=== PATIENT | male | born 1965 | race Hispanic/Latino ===

== ENCOUNTER 2016-12-20 03:35 | Inpatient (IN) | payer OTHER ==
[2016-12-20 03:35] VITALS: BMI 22.2
[2016-12-20] MEDS ORDERED: Sodium Chloride 0.9% 1,000 ML IV STA (04:02)
--- NOTE | 2016-12-20 04:21 | ED PDOC ---
HPI: General Adult Time Seen by Provider: 12/20/16 03:45 Chief Complaint (Nursing): Abdominal Pain Chief Complaint (Provider): Abdominal Pain History Per: Patient Additional Complaint(s): Pt. states on Tuesday12/15/16 [address] in [facility] ED in [place] as he had abdominal pain and vomiting for 3 days. States he was admitted for an "intestinal obstruction." The following day he had an operation done and another operation the following day. Pt. states he is uncertain as to why he had to operations done. Reports to also having a NGT placed. On Tuesday he was discharged from the hospital and while he was at home he developed pain again along with non-bloody watery diarrhea. Also reports noticing redness to his abdomen. Denies fever, melena, hematochezia, BRBPR, chest pain, SOB, vomiting. Past Medical History Reviewed: Historical Data, Nursing Documentation, Vital Signs Vital Signs: Last Vital Signs Temp 98.6 F 12/20/16 03:46 Pulse 85 12/20/16 03:46 Resp 18 12/20/16 03:46 BP 143/80 12/20/16 03:46 Pulse Ox 98 12/20/16 05:28 - Medical History PMH: Anxiety, Back Problems (herniated discs) - Family History Family History: States: No Known Family Hx - Immunization History Hx Tetanus Toxoid Vaccination: No Hx Influenza Vaccination: No Hx Pneumococcal Vaccination: No - Home Medications Home Medications: Ambulatory Orders Medication Instructions Recorded No Known Home Med 11/19/16 - Allergies Allergies/Adverse Reactions: Allergies Allergy/AdvReac Type Severity Reaction Status Date / Time ketorolac tromethamine AdvReac NAUSEA Verified 12/20/16 05:16 [From Toradol] Review of Systems ROS Statement: Except As Marked, All Systems Reviewed And Found Negative Gastrointestinal: Positive for: Nausea, Vomiting, Abdominal Pain, Diarrhea Physical Exam - Reviewed Nursing Documentation Reviewed: Yes Vital Signs Reviewed: Yes - Physical Exam Appears: Positive for: Well, Non-toxic, No Acute Distress Head Exam: Positive for: ATRAUMATIC, NORMAL INSPECTION, NORMOCEPHALIC Skin: Positive for: Normal Color, Warm. Negative for: Rash Eye Exam: Positive for: EOMI, Normal appearance, PERRL ENT: Positive for: Normal ENT Inspection Neck: Positive for: Normal, Painless ROM Cardiovascular/Chest: Positive for: Regular Rate, Rhythm Respiratory: Positive for: CNT, Normal Breath Sounds Gastrointestinal/Abdominal: Positive for: Normal Exam, Bowel Sounds, Soft, Tenderness (minimal diffuse abdominal tenderness), Other (large ventral scar with asad in place and surrounding erythema with extension to RLQ without discharge or swelling). Negative for: Distended, Rebound Back: Positive for: Normal Inspection. Negative for: L CVA Tenderness, R CVA Tenderness Extremity: Positive for: Normal ROM Neurologic/Psych: Positive for: Alert, Oriented - Laboratory Results Result Diagrams: 12/20/16 05:37 - ECG O2 Sat by Pulse Oximetry: 98 - Progress ED Course And Treament: Labs ordered. Blood culture x 2 ordered. Dilaudid 1mg IV, zofran 4mg IV, zosyn IV, vancomycin IV given. IV NS bolus given. Rectal: light brown diarrhea; hemoccult negative; no hemorrhoids. Misty RN was present as database administration manager during rectal exam. Denies hx of anemia, previous transfusions, hx of GI bleeds. Disposition - Clinical Impression Clinical Impression: Abdominal pain - Patient ED Disposition Is Patient to be Admitted: Transfer of Care (Signed out to Dr. London pending CT results.) - Disposition Disposition Time: 06:00 Condition: STABLE
[2016-12-20] MEDS ORDERED: Piperacillin/Tazobact 3.375 GM in Sodium Chloride 0.9% 100 ML IVPB STA (04:45)
[2016-12-20] MEDS ORDERED: Piperacillin/Tazobact 3.375 gm Inj IVPB ONE (05:00)
[2016-12-20] MEDS ORDERED: Vancomycin 1 g Inj ONE (05:00)
[2016-12-20 05:42] LABS: BASO % 0.2 % (0.0-2.0); EOS # 0.1 K/uL (0.0-0.7); EOS % 0.8 % (0.0-4.0); HEMATOCRIT 25.1 % (35.0-51.0); LYMPH # 1.1 K/uL (1.0-4.3); LYMPH % 8.6 % (20.0-40.0); MEAN CELL VOLUME 87.6 fl (80.0-94.0); MEAN CORPUSCULAR HEMOGLOBIN 29.2 pg (27.0-31.0); MEAN CORPUSCULAR HGB CONC 33.3 g/dL (33.0-37.0); MEAN PLATELET VOLUME 7.8 fl (7.2-11.7); MONO # 0.8 K/uL (0.0-0.8); MONO % 6.2 % (0.0-10.0); NEUT # 10.7 K/uL (1.8-7.0); NEUT % 84.2 % (50.0-75.0); PLATELET COUNT 543 K/uL (130-400); RED CELL DISTRIBUTION WIDTH 14.5 % (11.5-14.5); WHITE BLOOD COUNT 12.7 K/uL (4.8-10.8)
[2016-12-20 06:04] LABS: CHLORIDE 100 mmol/L (98-107); POTASSIUM 2.8 MMOL/L (3.6-5.0); SODIUM 138 mmol/l (132-148)
--- NOTE | 2016-12-20 06:05 | ED PDOC ---
- Laboratory Results Result Diagrams: 12/20/16 05:37 12/20/16 05:37 - ECG O2 Sat by Pulse Oximetry: 98 (RA) Pulse Ox Interpretation: Normal Medical Decision Making Medical Decision Making: Receiving Sign Out: Patient signed out to me by JOSSUE Verdugo pending CT results and final disposition. Scribe Attestation: Documented by Alisa Hercules acting as a scribe for Zaynab London MD Provider Scribe Attestation: All medical record entries made by the Scribe were at my direction and personally dictated by me. I have reviewed the chart and agree that the record accurately reflects my personal performance of the history, physical exam, medical decision making, and the department course for this patient. I have also personally directed, reviewed, and agree with the discharge instructions and disposition. Disposition - Clinical Impression Clinical Impression: Abdominal pain, Enteritis, Anemia - POA Present On Arrival: None - Disposition Disposition: Transfer of Care Disposition Time: 07:00 Condition: FAIR Patient Signed Over To: Braxton Helm Handoff Comments: Pending CT and final ER dispo
[2016-12-20 06:06] LABS: GFR AFRICAN-AMERICAN > 60
[2016-12-20 06:07] LABS: ALB/GLOB RATIO 0.7 (1.0-2.1); ALKALINE PHOSPHATASE 127 U/L (38-126); ALT/SGPT 25 U/L (21-72); AST/SGOT 46 U/L (17-59); BILIRUBIN,TOTAL 0.7 mg/dl (0.2-1.3); BLOOD UREA NITROGEN 6 mg/dl (9-20); CARBON DIOXIDE 26 mmol/L (22-30); GLUCOSE,RANDOM 98 mg/dL (75-110); TOTAL PROTEIN 7.3 G/DL (6.3-8.2)
[2016-12-20 06:08] LABS: CALCIUM 8.4 mg/dL (8.4-10.2)
[2016-12-20] MEDS ORDERED: Iohexol 300 100 ML IJ ONE (06:10)
[2016-12-20] MEDS ORDERED: Sodium Chloride 0.9% 50 ML IV ONE (06:10)
[2016-12-20 06:11] LABS: RBC URINE 2 /hpf (0-3); URINE BILIRUBIN NEGATIVE (NEGATIVE); URINE BLOOD SMALL (NEGATIVE); URINE COLOR STRAW (YELLOW); URINE GLUCOSE (UA) NEG (Normal); URINE KETONE NEGATIVE (NEGATIVE); URINE LEUKOCYTE ESTERASE NEG Leu/uL (Negative); URINE PROTEIN 30 mg/dL (NEGATIVE); URINE UROBILINOGEN 0.2-1.0 mg/dL (0.2-1.0); WBC URINE < 1 /hpf (0-5)
[2016-12-20] MEDS ORDERED: Potassium CL 10mEq/100ml 100 ML IVPB ONE (06:16)
[2016-12-20] MEDS ORDERED: K-Lyte 25meq EF Tab PO ONE (06:17)
[2016-12-20] MEDS ORDERED: K-Lyte 25meq EF Tab PO STA (06:18)
[2016-12-20 06:24] LABS: EOSINOPHIL 4 % (0-7); NEUTROPHIL 82 % (42-75); REACTIVE LYMPHOCYTES 2 % (0-0); TOTAL CELLS COUNTED 100
[2016-12-20 06:45] VITALS: PULSE 78
[2016-12-20 06:47] LABS: PARTIAL THROMBOPLASTIN TIME 32.6 SECONDS (23.3-32.5)
--- NOTE | 2016-12-20 07:10 | CT ---
EXAM: CT Abdomen and Pelvis With Intravenous Contrast. CLINICAL HISTORY: 50 years old, male; Pain; Abdominal pain; Generalized; Prior surgery; Surgery date: 3-7 days post-operative; Surgery type: Per patient for obstruction; Additional info: Recent obstruction; Cellulitis on incision TECHNIQUE: Axial computed tomography images of the abdomen and pelvis with intravenous contrast. This CT exam was performed using one or more of the following dose reduction techniques: automated exposure control, adjustment of the mA and/or kV according to patient size, and/or use of iterative reconstruction technique. Coronal and sagittal reformatted images were created and reviewed. CONTRAST: 95 mL of [id number] administered intravenously. EXAM DATE/TIME: 12/20/2016 4:02 AM COMPARISON: No relevant prior studies available. FINDINGS: There are bilateral lower lung infiltrates and atelectasis. Trace bilateral pleural effusions. [place] are present along the anterior abdomen at midline and just to the left of midline. There is a small amount of stranding/fluid underlying the skin asad within normal limits. No drainable walled off fluid collection. Surgical sutures are noted in bowel in the right upper quadrant. The stomach is distended with fluid and air. There is diffuse dilation of the small and large bowel with fluid. Small bowel loops in the pelvis are less dilated than those proximally however are still distended. Entire colon is dilated with fluid. There is prominent fold enhancement in numerous small bowel loops. Findings supportive of postoperative ileus and/or enteritis. Air in urinary bladder that is pectus secondary to Raphael placement during surgery. The liver is normal. The spleen is normal. The pancreas is normal. No gallstones. Trace bilateral perinephric stranding. IMPRESSION: Status post bowel surgery right upper quadrant. Diffuse dilation of small and large bowel with fluid. Findings supportive of postoperative ileus and/or enteritis.
--- NOTE | 2016-12-20 07:13 | ED PDOC ---
- Laboratory Results Result Diagrams: 12/20/16 05:37 12/20/16 05:37 - ECG O2 Sat by Pulse Oximetry: 98 Medical Decision Making Medical Decision Makin signed over to me by Moe London MD [id number] labs and imaging reviewed. case discussed with family practice resident. Disposition - Clinical Impression Clinical Impression: Abdominal pain, Enteritis, Anemia - POA Present On Arrival: None - Disposition Disposition: Admitted as In-Patient Disposition Time: 07:54 Condition: FAIR Additional Comments - Additional Comments Additional Comments: Scribe Attestation: Documented by Poli Tapia acting as a scribe for Braxton Helm MD Provider Scribe Attestation: All medical record entries made by the Scribe were at my direction and personally dictated by me. I have reviewed the chart and agree that the record accurately reflects my personal performance of the history, physical exam, medical decision making, and the department course for this patient. I have also personally directed, reviewed, and agree with the discharge instructions and disposition.
[2016-12-20] MEDS ORDERED: Potassium Chloride 10 mEq ER Tab PO ONE ×2 (07:54→08:40)
[2016-12-20] MEDS ORDERED: HYDROmorphone 0.5 mg/0.5 ml ISec IVP PRN (08:17)
[2016-12-20] MEDS ORDERED: Enoxaparin 40 mg Syringe SC SCH (09:00)
[2016-12-20 09:22] VITALS: BP 144/74; TEMP 97.8
--- NOTE | 2016-12-20 09:53 | CP.PCM.HP ---
History of Present Illness - History of Present Illness History of Present Illness: 50 YO M s/p abdominal surgery (unknown) at [facility] ED in [place] on 12/15/16 came into the ED today because he has been having diarrhea since yesterday. He can not quantify how many times a day. Stool is profusly watery, non bloody, non foul smelling. - On tuesday he was discharged from the hospital and states he is having very severe abdominal pain and diarrhea.. Denies fever, chills, rigor, night sweats Past Patient History - Infectious Disease Hx of Infectious Diseases: None - Past Medical History & Family History Past Medical History?: Yes - Past Social History Smoking Status: Heavy Smoker > 10 Cigarettes Daily - CARDIAC Hx Cardiac Disorders: No - PULMONARY Hx Respiratory Disorders: No - NEUROLOGICAL Hx Neurological Disorder: No - HEENT Hx HEENT Problems: No - RENAL Hx Chronic Kidney Disease: No - ENDOCRINE/METABOLIC Hx Endocrine Disorders: No - HEMATOLOGICAL/ONCOLOGICAL Hx Blood Disorders: No - INTEGUMENTARY Hx Dermatological Problems: No - MUSCULOSKELETAL/RHEUMATOLOGICAL Hx Musculoskeletal Disorders: Yes (Back problems) - GENITOURINARY/GYNECOLOGICAL Hx Genitourinary Disorders: No - PSYCHIATRIC Hx Psychophysiologic Disorder: Yes (Anxiety, Substance abuse) - SURGICAL HISTORY Hx Surgeries: Yes Hx Musculoskeletal Surgery: Yes (right knee meniscus tear) - ANESTHESIA Hx Anesthesia: No Meds Allergies/Adverse Reactions: Allergies Allergy/AdvReac Type Severity Reaction Status Date / Time ketorolac tromethamine AdvReac NAUSEA Verified 12/20/16 05:16 [From Toradol] Results - Vital Signs Recent Vital Signs: Last Vital Signs Temp 97.8 F 12/20/16 09:21 Pulse 78 12/20/16 09:21 Resp 18 12/20/16 09:21 BP 144/74 12/20/16 09:21 Pulse Ox 99 12/20/16 09:21 - Labs Result Diagrams: 12/20/16 05:37 12/20/16 05:37
[2016-12-20 09:59] VITALS: RESP 20
--- NOTE | 2016-12-20 12:00 | RAD ---
PROCEDURE: Radiographs of the chest and abdomen (obstructive series) HISTORY: recent intestinal obstruction COMPARISON: No prior. TECHNIQUE: AP radiograph of the chest, with upright and supine radiographs of the abdomen. FINDINGS: CHEST: Lungs: Vaguely triangular opacity at right lung base, nonspecific. Pneumonia versus atelectasis. Cardiovascular: Normal size heart. No pulmonary vascular congestion. Pleura: No pleural fluid. No pneumothorax. Other findings: None. ABDOMEN AND PELVIS: Bowel: Multiple dilated small bowel loops with air-fluid levels on the upright view. Suspicious for mechanical bowel obstruction. There is evidence of recent surgery with asad in the lower midline abdomen. There is no gas identified within colon. Free air: None. Bones: Unremarkable. Other findings: None. IMPRESSION: Findings suspicious for mechanical small bowel obstruction. Evidence of recent surgery. Opacity at right lung base may reflect infiltrate or atelectasis.
[2016-12-22 14:13] VITALS: O2SAT 98
== END 2016-12-20 10:05 | disposition left against medical advice (07) | DRG 813 ==
LOC: H.ER 03:35 → H.ERHOLD 07:55 → H.MEDSURG1 09:16
PROVIDERS: ADMIT Family Medicine Geriatric Medicine; ATTEND Family Medicine Geriatric Medicine
DX: R10.9 Unspecified abdominal pain (principal); E87.6 Hypokalemia; K56.7 Ileus, unspecified; F17.210 Nicotine dependence, cigarettes, uncomplicated; D50.0 Iron deficiency anemia secondary to blood loss (chronic); F41.9 Anxiety disorder, unspecified; K52.9 Noninfective gastroenteritis and colitis, unspecified; R11.0 Nausea

== ENCOUNTER 2016-12-23 21:29 | Emergency (ER) | payer OTHER ==
[2016-12-23 21:30] VITALS: BMI 21.5
[2016-12-23 21:33] VITALS: BP 126/67; PULSE 87; RESP 20; TEMP 97.9; O2SAT 100
[2016-12-23] MEDS ORDERED: levoFLOXacin 500 MG TAB PO STA (22:52)
--- NOTE | 2016-12-23 22:58 | ED PDOC ---
HPI: Skin/Bite Injury Time Seen by Provider: 12/23/16 21:40 Chief Complaint (Nursing): Abdominal Pain Chief Complaint (Provider): wound discharge History Per: Patient History/Exam Limitations: no limitations Onset/Duration Of Symptoms: Days (1) Current Symptoms Are (Timing): Still Present Additional Complaint(s): Pt with surgical wound to abdomen s/p surgery 2 weeks ago in another hospital for bowel obstruction. Seen in this ER over last several days for evaluation of abdominal pain. Discharged on bactrim for redness surrounding wound. This is the same but he presents today with bloody discharge from wound for 1 day ( started yesterday evening). He reports that he has not cleaned it or applied anything to the site since he was discharged 2 days ago and requesting that the wound be cleaned and material applied to cover the wound. He denies fever or chills. Past Medical History Reviewed: Historical Data, Nursing Documentation, Vital Signs Vital Signs: Last Vital Signs Temp 97.9 F 12/23/16 21:31 Pulse 87 12/23/16 21:31 Resp 20 12/23/16 21:31 BP 126/67 12/23/16 21:31 Pulse Ox 100 12/23/16 23:17 - Medical History PMH: Anxiety, Back Problems (herniated discs) Denies: Chronic Kidney Disease - Surgical History Other surgeries: Abdominal surgery for obstruction - Family History Family History: States: Unknown Family Hx - Social History Current smoker - smoking cessation education provided: Yes - Immunization History Hx Tetanus Toxoid Vaccination: No Hx Influenza Vaccination: No Hx Pneumococcal Vaccination: No - Home Medications Home Medications: Ambulatory Orders Medication Instructions Recorded Sulfamethoxazole/Trimethoprim 1 each PO BID 7 Days 12/21/16 [Bactrim 400-80 mg Tablet] traMADol [Ultram] 25 mg PO Q6 PRN #20 tab 12/21/16 Mupirocin 2% Ointment [Bactroban 1 appl TP BID #1 tube 12/23/16 Ointment] levoFLOXacin [Levaquin] 500 mg PO DAILY #10 tab 12/23/16 - Allergies Allergies/Adverse Reactions: Allergies Allergy/AdvReac Type Severity Reaction Status Date / Time No Known Allergies Allergy Verified 12/21/16 15:27 Review of Systems Constitutional: Negative for: Fever, Chills Gastrointestinal: Positive for: Abdominal Pain. Negative for: Nausea, Vomiting , Diarrhea Skin: Positive for: Lesions Physical Exam - Reviewed Nursing Documentation Reviewed: Yes Vital Signs Reviewed: Yes - Physical Exam Appears: Positive for: Non-toxic, No Acute Distress Head Exam: Positive for: ATRAUMATIC, NORMOCEPHALIC Skin: Positive for: Warm, Dry Gastrointestinal/Abdominal: Positive for: Bowel Sounds, Soft, Tenderness (mild diffuse), Other (Ventral surgical scar with moderate dark brown granuloma and serosanguinous discharge, no odor, no purulence. Erythema mild midline and mild extension to RLQ). Negative for: Mass, Distended, Guarding - ECG O2 Sat by Pulse Oximetry: 100 Disposition - Clinical Impression Clinical Impression: Surgical wound granuloma - Disposition Referrals: [facility] [Outside] (FOLLOW UP WITH CLINIC IN 2-3 DAYS FOR REEVALUATION) Disposition: Routine/Home Disposition Time: 22:00 Condition: STABLE Additional Instructions: CLEAN WOUND TWICE A DAY WITH SOAP AND WATER. Prescriptions: Mupirocin 2% Ointment [Bactroban Ointment] 1 appl TP BID #1 tube levoFLOXacin [Levaquin] 500 mg PO DAILY #10 tab Instructions: Surgical Site Infections (ED)
== END 2016-12-23 23:01 | disposition home or self-care (01) ==
LOC: H.ER 21:29
DX: T81.89XA Other complications of procedures, not elsewhere classified, initial encounter (principal)

== ENCOUNTER 2016-12-30 19:45 | Emergency (ER) | payer OTHER ==
[2016-12-30 19:45] VITALS: BMI 21.5
[2016-12-30 20:05] VITALS: BP 126/80; PULSE 75; RESP 16; TEMP 98.2; O2SAT 99
--- NOTE | 2016-12-30 20:20 | ED PDOC ---
HPI: Wound Care - HPI Time Seen by Provider: 12/30/16 20:12 Chief Complaint (Nursing): Wound Check Chief Complaint (Provider): Wound check History Per: Patient Additional Complaint(s): pt had abd surgery several weeks ago, pt reports one of his asad fell out. Denies pain. Past Medical History Vital Signs: Last Vital Signs Temp 98.2 F 12/30/16 20:03 Pulse 75 12/30/16 20:03 Resp 16 12/30/16 20:03 BP 126/80 12/30/16 20:03 Pulse Ox 99 12/30/16 20:03 - Medical History PMH: Anxiety, Back Problems (herniated discs), Obstructive Bowel Denies: Chronic Kidney Disease - Family History Family History: States: Unknown Family Hx - Immunization History Hx Tetanus Toxoid Vaccination: No Hx Influenza Vaccination: No Hx Pneumococcal Vaccination: No - Home Medications Home Medications: Ambulatory Orders Medication Instructions Recorded Sulfamethoxazole/Trimethoprim 1 each PO BID 7 Days 12/21/16 [Bactrim 400-80 mg Tablet] traMADol [Ultram] 25 mg PO Q6 PRN #20 tab 12/21/16 Mupirocin 2% Ointment [Bactroban 1 appl TP BID #1 tube 12/23/16 Ointment] levoFLOXacin [Levaquin] 500 mg PO DAILY #10 tab 12/23/16 - Allergies Allergies/Adverse Reactions: Allergies Allergy/AdvReac Type Severity Reaction Status Date / Time No Known Allergies Allergy Verified 12/21/16 15:27 - ECG O2 Sat by Pulse Oximetry: 99
== END 2016-12-30 22:03 | disposition home or self-care (01) ==
LOC: H.ER 19:45
DX: Z51.89 Encounter for other specified aftercare (principal)

== ENCOUNTER 2017-01-04 23:22 | Inpatient (IN) | payer OTHER ==
[2017-01-04 23:22] VITALS: BMI 21.5
[2017-01-05] MEDS ORDERED: Sodium Chloride 0.9% 1,000 ML IV STA (00:11)
--- NOTE | 2017-01-05 00:16 | ED PDOC ---
HPI: Abdomen <Adri Galan Y - Last Filed: 01/05/17 06:31> Chief Complaint (Provider): abdominal pain History Per: Patient History/Exam Limitations: no limitations Onset/Duration Of Symptoms: Days (1) Current Symptoms Are (Timing): Still Present Location Of Pain/Discomfort: Epigastric, LUQ Quality Of Discomfort: Sharp, "Pain" Associated Symptoms: denies: Fever, Chills, Nausea, Vomiting, Diarrhea, Constipation, Urinary Symptoms Additional History Per: Patient <Maryan Powers - Last Filed: 01/06/17 03:22> Time Seen by Provider: 01/04/17 23:45 Chief Complaint (Nursing): Abdominal Pain Additional Complaint(s): 51 y/o male history of recent abdominal surgery for intestinal obstructions in [place] presents with severe upper abdominal pain x 1 day. Denies fever, nausea/vomiting, chest pain, shortness of breath, changes in bowel movements, urinary symptoms. No medications taken for pain relief thus far. Last BM yesterday. (Maryan Powers) Past Medical History <Adri Galan Y - Last Filed: 01/05/17 06:31> Reviewed: Historical Data, Nursing Documentation, Vital Signs - Medical History PMH: Anxiety, Back Problems (herniated discs), Obstructive Bowel Denies: Chronic Kidney Disease - Family History Family History: States: Unknown Family Hx - Immunization History Hx Tetanus Toxoid Vaccination: No Hx Influenza Vaccination: No Hx Pneumococcal Vaccination: No <Maryan Powers - Last Filed: 01/06/17 03:22> Vital Signs: Last Vital Signs Temp 98.4 F 01/05/17 08:55 Pulse 100 H 01/05/17 08:55 Resp 20 01/05/17 09:45 BP 117/68 01/05/17 08:55 Pulse Ox 97 01/05/17 08:55 - Home Medications Home Medications: Ambulatory Orders Medication Instructions Recorded No Known Home Med 01/05/17 - Allergies Allergies/Adverse Reactions: Allergies Allergy/AdvReac Type Severity Reaction Status Date / Time No Known Allergies Allergy Verified 01/04/17 23:32 Review of Systems ROS Statement: Except As Marked, All Systems Reviewed And Found Negative Gastrointestinal: Positive for: Abdominal Pain <Maryan Powers - Last Filed: 01/06/17 03:22> Physical Exam - Reviewed Nursing Documentation Reviewed: Yes Vital Signs Reviewed: Yes - Physical Exam Appears: Positive for: Well, Non-toxic, In Acute Distress Head Exam: Positive for: ATRAUMATIC, NORMAL INSPECTION, NORMOCEPHALIC Skin: Positive for: Normal Color Eye Exam: Positive for: Normal appearance ENT: Positive for: Normal ENT Inspection Cardiovascular/Chest: Positive for: Regular Rate, Rhythm Respiratory: Positive for: Normal Breath Sounds Gastrointestinal/Abdominal: Positive for: Bowel Sounds (decreased LUQ, LLQ), Tenderness (LUQ, epigastric), Distended, Other (vertical incision site with asad in place. Erythema surrounding asad, + prurulent discharge noted near umbilicus) Extremity: Positive for: Normal ROM Neurologic/Psych: Positive for: Alert, Oriented <Maryan Powers - Last Filed: 01/06/17 03:22> - Laboratory Results Result Diagrams: 01/05/17 01:37 01/05/17 01:37 <Adri Galan - Last Filed: 01/05/17 06:31> - Laboratory Results Result Diagrams: 01/05/17 01:37 01/05/17 01:37 - ECG ECG: Positive for: Viewed By Ms (reviewed by ED attending) ECG Rhythm: Positive for: Sinus Rhythm O2 Sat by Pulse Oximetry: 100 Pulse Ox Interpretation: Normal - Radiology X-Ray: Viewed By Me X-Ray Interpretation: No Acute Disease <Maryan Powers - Last Filed: 01/06/17 03:22> - Progress ED Course And Treament: labs, urine, CT abd/pelvis, IV dilaudid, IV fluids Patient vomited in ED; IV zofran ordered EXAM: CT Abdomen and Pelvis With Intravenous Contrast. CLINICAL HISTORY: 51 years old, male; Pain; Abdominal pain; Generalized; Prior surgery; Surgery date: <1 month; Surgery type: Surgery for intestinal blockage per patient; Additional info: Abd pain, vomiting. S/P abd surgery x 3 weeks TECHNIQUE: Axial computed tomography images of the abdomen and pelvis with intravenous contrast. This CT exam was performed using one or more of the following dose reduction techniques : automated exposure control, adjustment of the mA and/or kV according to patient size, and/ or use of iterative reconstruction technique. Coronal and sagittal reformatted images were created and reviewed. CONTRAST: 95 mL of [id number] administered intravenously. COMPARISON: CT - ABD PELVIS IV CONTRAST ONLY 12/20/2016 6:19:11 AM FINDINGS: Lower thorax: There is minimal bibasilar atelectasis. ABDOMEN: Liver: There are no focal liver lesions present. Gallbladder and bile ducts: The gallbladder is normal. No calcified stones. No ductal dilation. Pancreas: Pancreas is slightly fatty replaced. No ductal dilation. Spleen: The spleen is normal. Adrenals: The adrenal glands are normal. Kidneys and ureters: Right kidney demonstrates mild hydronephrosis and proximal hydroureter but with no obstructing calculus found. Of note, the appearance was similar on 2016. The left kidney is normal. Stomach and bowel: There is small bowel obstruction with proximal fluid filled loops measuring up to 1.6 CM. Distal transition zone. Some gas and stool remain in the colon suggesting that the small bowel obstruction is partial in nature. The findings are similar to 12/20/2016. Again seen is intact bowel anastomosis in the right mid abdomen. Appendix: No findings to suggest acute appendicitis PELVIS: Bladder: Unremarkable. No mass. Reproductive: Unremarkable as visualized. ABDOMEN and PELVIS: Intraperitoneal space: There is small pelvic ascites, and abnormal although nonspecific. There is no free intraperitoneal air. Bones/joints: There are mild degenerative changes present. There is mild diffuse osteopenia. No acute fracture. No dislocation. Soft tissues: Skin asad are again noted in the anterior abdomen midline running craniocaudally Vasculature: The aorta demonstrates mild atherosclerotic calcification. No abdominal aortic aneurysm. Lymph nodes: There is no evidence of lymphadenopathy. IMPRESSION: 1. Right kidney demonstrates mild hydronephrosis and proximal hydroureter but with no obstructing calculus found. Of note, the appearance was similar on 12/20/2016. 2. There is small bowel obstruction with proximal fluid filled loops measuring up to 1.6 CM. Distal transition zone. Some gas and stool remain in the colon suggesting that the small bowel obstruction is partial in nature. The findings are similar to 12/20/2016. 3. Again seen is intact bowel anastomosis in the right mid abdomen. 4. There is small pelvic ascites, and abnormal although nonspecific. 5. Additional incidental and/or chronic findings as described. Case discussed with FP resident on-call for admission. presidential support specialist on-call aware of consult. Dr. Bonner paged regarding consult (Maryan Powers) Medical Decision Making <Adri Galan Y - Last Filed: 01/05/17 06:31> <Maryan Powers - Last Filed: 01/06/17 03:22> Medical Decision Makin: Dr. Bonner aware. (Adri Galan Y) Disposition <Adri Galan Y - Last Filed: 01/05/17 06:31> - Patient ED Disposition Is Patient to be Admitted: Yes - Disposition Disposition Time: 05:30 <Maryan Powers - Last Filed: 01/06/17 03:22> - Clinical Impression Clinical Impression: Small bowel obstruction - Disposition Condition: FAIR
[2017-01-05] MEDS ORDERED: HYDROmorphone 0.5 mg/0.5 ml ISec ONE (00:28)
[2017-01-05] MEDS ORDERED: Iohexol 240 (50 ml) PO ONE (00:28)
[2017-01-05 01:42] LABS: BASO % 0.2 % (0.0-2.0); EOS % 0.3 % (0.0-4.0); HEMATOCRIT 31.4 % (35.0-51.0); LYMPH # 0.7 K/uL (1.0-4.3); LYMPH % 5.4 % (20.0-40.0); MEAN CELL VOLUME 91.9 fl (80.0-94.0); MEAN CORPUSCULAR HEMOGLOBIN 29.3 pg (27.0-31.0); MEAN CORPUSCULAR HGB CONC 31.9 g/dL (33.0-37.0); MEAN PLATELET VOLUME 8.2 fl (7.2-11.7); MONO % 0.3 % (0.0-10.0); NEUT # 11.9 K/uL (1.8-7.0); NEUT % 93.8 % (50.0-75.0); PLATELET COUNT 319 K/uL (130-400); RED CELL DISTRIBUTION WIDTH 17.5 % (11.5-14.5); WHITE BLOOD COUNT 12.6 K/uL (4.8-10.8)
[2017-01-05 01:57] LABS: ALB/GLOB RATIO 0.9 (1.0-2.1); ALKALINE PHOSPHATASE 92 U/L (38-126); ALT/SGPT 24 U/L (21-72); AST/SGOT 26 U/L (17-59); BILIRUBIN,TOTAL 0.5 mg/dl (0.2-1.3); BLOOD UREA NITROGEN 10 mg/dl (9-20); CALCIUM 8.7 mg/dL (8.4-10.2); CARBON DIOXIDE 28 mmol/L (22-30); CHLORIDE 101 mmol/L (98-107); GFR AFRICAN-AMERICAN > 60; GLUCOSE,RANDOM 95 mg/dL (75-110); LIPASE 17 U/L (23-300); POTASSIUM 3.7 MMOL/L (3.6-5.0); SODIUM 141 mmol/l (132-148)
[2017-01-05] MEDS ORDERED: Iohexol 300 50 ML ONE (04:21)
[2017-01-05] MEDS ORDERED: Sodium Chloride 0.9% 50 ML IV ONE (04:21)
[2017-01-05 04:33] LABS: NEUTROPHIL 92 % (42-75); TOTAL CELLS COUNTED 100
--- NOTE | 2017-01-05 05:07 | CT ---
EXAM: CT Abdomen and Pelvis With Intravenous Contrast. CLINICAL HISTORY: 51 years old, male; Pain; Abdominal pain; Generalized; Prior surgery; Surgery date: <1 month; Surgery type: Surgery for intestinal blockage per patient; Additional info: Abd pain, vomiting. S/P abd surgery x 3 weeks TECHNIQUE: Axial computed tomography images of the abdomen and pelvis with intravenous contrast. This CT exam was performed using one or more of the following dose reduction techniques: automated exposure control, adjustment of the mA and/or kV according to patient size, and/or use of iterative reconstruction technique. Coronal and sagittal reformatted images were created and reviewed. CONTRAST: 95 mL of [id number] administered intravenously. COMPARISON: CT - ABD PELVIS IV CONTRAST ONLY 12/20/2016 6:19:11 AM FINDINGS: Lower thorax: There is minimal bibasilar atelectasis. ABDOMEN: Liver: There are no focal liver lesions present. Gallbladder and bile ducts: The gallbladder is normal. No calcified stones. No ductal dilation. Pancreas: Pancreas is slightly fatty replaced. No ductal dilation. Spleen: The spleen is normal. Adrenals: The adrenal glands are normal. Kidneys and ureters: Right kidney demonstrates mild hydronephrosis and proximal hydroureter but with no obstructing calculus found. Of note, the appearance was similar on 12/20/2016. The left kidney is normal. Stomach and bowel: There is small bowel obstruction with proximal fluid filled loops measuring up to 1.6 CM. Distal transition zone. Some gas and stool remain in the colon suggesting that the small bowel obstruction is partial in nature. The findings are similar to 12/20/2016. Again seen is intact bowel anastomosis in the right mid abdomen. Appendix: No findings to suggest acute appendicitis. PELVIS: Bladder: Unremarkable. No mass. Reproductive: Unremarkable as visualized. ABDOMEN and PELVIS: Intraperitoneal space: There is small pelvic ascites, and abnormal although nonspecific. There is no free intraperitoneal air. Bones/joints: There are mild degenerative changes present. There is mild diffuse osteopenia. No acute fracture. No dislocation. Soft tissues: Skin asad are again noted in the anterior abdomen midline running craniocaudally Vasculature: The aorta demonstrates mild atherosclerotic calcification. No abdominal aortic aneurysm. Lymph nodes: There is no evidence of lymphadenopathy. IMPRESSION: 1. Right kidney demonstrates mild hydronephrosis and proximal hydroureter but with no obstructing calculus found. Of note, the appearance was similar on 12/20/2016. 2. There is small bowel obstruction with proximal fluid filled loops measuring up to 1.6 CM. Distal transition zone. Some gas and stool remain in the colon suggesting that the small bowel obstruction is partial in nature. The findings are similar to 12/20/2016. 3. Again seen is intact bowel anastomosis in the right mid abdomen. 4. There is small pelvic ascites, and abnormal although nonspecific. 5. Additional incidental and/or chronic findings as described.
--- NOTE | 2017-01-05 05:31 | CP.PCM.HP ---
History of Present Illness - History of Present Illness History of Present Illness: 50 yo M s/p abdominal surgery at [facility] in [place] on 12/15/16 for "intestinal obstruction" as per patient presented to ED with upper abdominal pain associated x 1 day without nausea or vomiting though in ED had 2 episodes of emesis and nausea. Patient had been admitted to med/surg approx 2 wks ago with similar symptoms, treated for post-op ileus and cellulitis. Patient has not returned to surgeon for further evaluation of previous operation. Last BM yesterday, unremarkable. Denies fever, chills, night sweats, chest pain, sob, diarrhea, constipation, changes in diet, or changes in urinary habits. PMH: None PSH: Surgery for intestinal obstruction Allergy: NKDA Meds: None F/H: None S/H: Lives with mother, Denies alcohol, Smokes 1ppd, denies drug use ER Course: Vitals stable, afebrile PE notable for Bowel Sounds (decreased LUQ, LLQ), Tenderness (LUQ, epigastric), Distended, Other (vertical incision site with asad in place. Erythema surrounding asad, + prurulent discharge noted near umbilicus) Labs notable for mild leukocytosis and mild anemia. CT Abdomen obtained, partial SBO Dilaudid 1mg x 2, Zofran 4mg x 2 (due to large emesis, nb/nb), 500ml NS bolus Present on Admission - Present on Admission Any Indicators Present on Admission: No Review of Systems - Review of Systems All systems: reviewed and no additional remarkable complaints except (mentioned in HPI) Past Patient History - Infectious Disease Hx of Infectious Diseases: None - Past Medical History & Family History Past Medical History?: Yes - Past Social History Smoking Status: Heavy Smoker > 10 Cigarettes Daily - CARDIAC Hx Cardiac Disorders: No - PULMONARY Hx Respiratory Disorders: No - NEUROLOGICAL Hx Neurological Disorder: No - HEENT Hx HEENT Problems: No - RENAL Hx Chronic Kidney Disease: No - ENDOCRINE/METABOLIC Hx Endocrine Disorders: No - HEMATOLOGICAL/ONCOLOGICAL Hx Blood Disorders: No - INTEGUMENTARY Hx Dermatological Problems: No - MUSCULOSKELETAL/RHEUMATOLOGICAL Hx Musculoskeletal Disorders: Yes Hx Falls: No - GASTROINTESTINAL Hx Gastrointestinal Disorders: No Hx Bowel Surgery: Yes - GENITOURINARY/GYNECOLOGICAL Hx Genitourinary Disorders: No - PSYCHIATRIC Hx Anxiety: Yes - SURGICAL HISTORY Hx Surgeries: Yes Hx Musculoskeletal Surgery: Yes (right knee meniscus tear) Other/Comment: 2 Abdominal surgery from [facility]- patient unable to identify at present time - ANESTHESIA Hx Anesthesia: Yes Hx Anesthesia Reactions: No Meds Allergies/Adverse Reactions: Allergies Allergy/AdvReac Type Severity Reaction Status Date / Time No Known Allergies Allergy Verified 01/04/17 23:32 Physical Exam - Constitutional Appears: Well, Non-toxic, No Acute Distress Additional comments: sleeping comfortably when walked into room - Head Exam Head Exam: ATRAUMATIC, NORMAL INSPECTION, NORMOCEPHALIC - Eye Exam Eye Exam: EOMI, Normal appearance - Neck Exam Neck exam: Positive for: Normal Inspection - Respiratory Exam Respiratory Exam: Clear to Auscultation Bilateral, NORMAL BREATHING PATTERN. absent: Decreased Breath Sounds, Rhonchi, Wheezes - Cardiovascular Exam Cardiovascular Exam: REGULAR RHYTHM, +S1, +S2 - GI/Abdominal Exam GI & Abdominal Exam: Hypoactive Bowel Sounds, Soft, Tenderness (epigastric). absent: Distended, Firm, Rebound Additional comments: vertical incision with asad intact, mild surrounding erythema without appreciated discharge. - Extremities Exam Extremities exam: Positive for: normal inspection. Negative for: calf tenderness, pedal edema - Neurological Exam Neurological exam: Alert, Oriented x3 - Psychiatric Exam Psychiatric exam: Normal Affect, Normal Mood - Skin Skin Exam: Dry, Intact, Normal Color, Warm Results - Vital Signs Recent Vital Signs: Last Vital Signs Temp 98.7 F 01/04/17 23:32 Pulse 92 H 01/04/17 23:32 Resp 16 01/04/17 23:32 BP 123/73 01/04/17 23:32 Pulse Ox 100 01/05/17 05:22 - Labs Result Diagrams: 01/05/17 01:37 01/05/17 01:37 Labs: Laboratory Results - last 24 hr 01/05/17 01:37 WBC 12.6 H RBC 3.42 L Hgb 10.0 L D Hct 31.4 L MCV 91.9 D MCH 29.3 MCHC 31.9 L RDW 17.5 H Plt Count 319 D MPV 8.2 Neut % (Auto) 93.8 H Lymph % (Auto) 5.[address] [facility] % (Auto) 0.3 Eos % (Auto) 0.3 Baso % (Auto) 0.2 Neut # 11.9 H Lymph # 0.[address] [facility] # 0.0 Eos # 0.0 Baso # 0.0 Neutrophils % (Manual) 92 H Band Neutrophils % 2 Lymphocytes % (Manual) 5 L Monocytes % (Manual) 1 Platelet Estimate Normal Hypochromasia (manual) Slight Macrocytosis (manual) Slight PT 10.5 INR 1.01 APTT 27.0 Sodium 141 Potassium 3.7 Chloride 101 Carbon Dioxide 28 Anion Gap 16 BUN 10 Creatinine 0.7 L Est GFR ( Amer) > 60 Est GFR (Non-Af Amer) > 60 Random Glucose 95 Lactic Acid 1.4 Calcium 8.7 Total Bilirubin 0.5 AST 26 ALT 24 Alkaline Phosphatase 92 Total Protein 7.0 Albumin 3.3 L Globulin 3.7 Albumin/Globulin Ratio 0.9 L Lipase 17 L Assessment & Plan (1) Small bowel obstruction, partial Status: Acute - Assessment and Plan (Free Text) Assessment: 50 yo M s/p abdominal surgery (likely due to SBO) on 12/15/16 at [facility] without proper follow up with findings of partial SBO at this time with associated symptoms of abdominal pain, nausea, and vomiting x 1 day. Plan: (1) Small bowel obstruction, partial - As seen on CT scan, see report for further details - Admit to med/surg - Surgery consulted by ED, will see patient, appreciate recommendations - NPO - Morphine PRN pain - Zofran PRN N/V - LR @ 100cc/hr - Consider NGT - Mild leukocytosis though afebrile and no purulent discharge noted on PE - Will hold off abx at this time till further eval - labs ordered, follow up (2) DVT Prophylaxis - SCDs for now
[2017-01-05 05:51] LABS: RBC URINE 2 /hpf (0-3); URINE BILIRUBIN NEGATIVE (NEGATIVE); URINE BLOOD NEGATIVE (NEGATIVE); URINE COLOR YELLOW (YELLOW); URINE GLUCOSE (UA) NEG (Normal); URINE KETONE NEGATIVE (NEGATIVE); URINE LEUKOCYTE ESTERASE NEG Leu/uL (Negative); URINE PROTEIN NEGATIVE (NEGATIVE); URINE UROBILINOGEN 0.2-1.0 mg/dL (0.2-1.0); WBC URINE 3 /hpf (0-5)
[2017-01-05] MEDS ORDERED: Lactated Ringer's 1,000 ML IV SCH (06:15)
[2017-01-05 08:37] VITALS: RESP 20
[2017-01-05 08:55] VITALS: BP 117/68; PULSE 100; TEMP 98.4
[2017-01-05] MEDS ORDERED: Piperacillin/Tazobact 3.375 GM in Sodium Chloride 0.9% 100 ML IVPB SCH (09:00)
--- NOTE | 2017-01-05 10:31 | CP.PCM.CON ---
History of Present Illness - History of Present Illness History of Present Illness: 50M s/p abdominal surgery 2/2 intestinal obstruction as per patient. Pt reported to the ED w/ abdominal pain for 1 day w/o n/v. Patient reports having 2 episodes of emesis during his stay in ED. Pt states he has not pass any flatus and feels distended. Denies fever, chills, night sweats, chest pain, sob , diarrhea, constipation, changes in diet, or changes in urinary habits. Patient initially refused NGT placement. During rounds patient ended up having a large bowel movement. Patient removed IV lines as per primary and walked out before anyone could explain benefits vs. risks. Since patient had large bowel movement this AM partial obstruction likely resolved. PMH: None PSH: Surgery for intestinal obstruction Allergy: NKDA Review of Systems - Review of Systems Systems not reviewed;Unavailable: Other Review of Systems: refused to answer ROS questions Past Patient History - Infectious Disease Hx of Infectious Diseases: None - Past Medical History & Family History Past Medical History?: Yes - Past Social History Smoking Status: Current Some Days Smoker - CARDIAC Hx Cardiac Disorders: No - PULMONARY Hx Respiratory Disorders: No - NEUROLOGICAL Hx Neurological Disorder: No - HEENT Hx HEENT Problems: No - RENAL Hx Chronic Kidney Disease: No - ENDOCRINE/METABOLIC Hx Endocrine Disorders: No - HEMATOLOGICAL/ONCOLOGICAL Hx Blood Disorders: No - INTEGUMENTARY Hx Dermatological Problems: No - MUSCULOSKELETAL/RHEUMATOLOGICAL Hx Musculoskeletal Disorders: Yes Hx Falls: No Hx Herniated Disk: Yes - GASTROINTESTINAL Hx Gastrointestinal Disorders: No Hx Bowel Surgery: Yes - GENITOURINARY/GYNECOLOGICAL Hx Genitourinary Disorders: No - PSYCHIATRIC Hx Psychophysiologic Disorder: Yes Hx Anxiety: Yes Hx Substance Use: Yes (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/04/17) - SURGICAL HISTORY Hx Surgeries: Yes Hx Musculoskeletal Surgery: Yes (right knee meniscus tear) Other/Comment: Abdominal surgery from [facility] 12/25/2016 - ANESTHESIA Hx Anesthesia: Yes Hx Anesthesia Reactions: No Meds Allergies/Adverse Reactions: Allergies Allergy/AdvReac Type Severity Reaction Status Date / Time No Known Allergies Allergy Verified 01/04/17 23:32 - Medications Medications: Current Medications Lactated Ringer's (Lactated Ringer's) 1,000 mls @ 100 mls/hr IV .Q10H MARION Last Admin: 01/05/17 08:26 Dose: 100 mls/hr Piperacillin Sod/Tazobactam (Sod 3.375 gm/ Sodium Chloride) 100 mls @ 100 mls/ hr IVPB Q12 MARION Morphine Sulfate (Morphine) 2 mg IVP Q4 PRN PRN Reason: Pain, moderate (4-7) Morphine Sulfate (Morphine) 4 mg IVP Q6 PRN PRN Reason: Pain, severe (8-10) Last Admin: 01/05/17 09:24 Dose: 4 mg Ondansetron HCl (Zofran Inj) 4 mg IVP Q6 PRN PRN Reason: Nausea/Vomiting Physical Exam - Constitutional Appears: No Acute Distress - Head Exam Head Exam: NORMOCEPHALIC - Eye Exam Eye Exam: Normal appearance - ENT Exam ENT Exam: Mucous Membranes Moist - Respiratory Exam Respiratory Exam: NORMAL BREATHING PATTERN - Cardiovascular Exam Cardiovascular Exam: +S1, +S2 - GI/Abdominal Exam GI & Abdominal Exam: Soft. absent: Firm, Guarding, Tenderness Additional comments: Patient distension resolved after BM. - Neurological Exam Neurological exam: Alert, Oriented x3 - Skin Skin Exam: Dry, Intact, Warm Results - Vital Signs Recent Vital Signs: Last Vital Signs Temp 98.4 F 01/05/17 08:55 Pulse 100 H 01/05/17 08:55 Resp 20 01/05/17 09:45 BP 117/68 01/05/17 08:55 Pulse Ox 97 01/05/17 08:55 - Labs Result Diagrams: 01/05/17 01:37 01/05/17 01:37 Assessment & Plan - Assessment and Plan (Free Text) Assessment: 51M w/ PSBO -Recommend NGT placement;patient refused -Had large BM, distension resolved, PSBO resolved -Patient left without medical advice -D/w Dr. Bonner
--- NOTE | 2017-01-05 10:40 | RAD ---
HISTORY: abd pain COMPARISON: Comparison is made to the previous exam dated 08/18/2016 FINDINGS: LUNGS: Mild elevation of the right hemidiaphragm noted. Otherwise no significant interval change in the lungs. PLEURA: No significant pleural effusion identified, no pneumothorax apparent. CARDIOVASCULAR: Normal. OSSEOUS STRUCTURES: No significant abnormalities. VISUALIZED UPPER ABDOMEN: Normal. OTHER FINDINGS: None. IMPRESSION: Mild elevation of the right hemidiaphragm. Otherwise no significant interval change.
--- NOTE | 2017-01-05 11:51 | CARD ---
APPROVED REPORT EKG Measurement Heart [id number] [place] 110P-3 [id number] <Conclusion> Sinus rhythm with short [place] Nonspecific T wave abnormality Abnormal ECG
--- NOTE | 2017-01-05 11:52 | CARD ---
APPROVED REPORT EKG Measurement Heart [id number] <Conclusion> Sinus rhythm with frequent premature ventricular complexes Otherwise normal ECG
[2017-01-06 03:22] VITALS: O2SAT 100
== END 2017-01-05 11:06 | disposition left against medical advice (07) | DRG 181 ==
LOC: H.ER 23:22 → H.ERHOLD 01-05 05:48 → H.MEDSURG1 01-05 08:44
PROVIDERS: ADMIT Family Medicine Geriatric Medicine; ATTEND Family Medicine Geriatric Medicine
DX: K56.60 Unspecified intestinal obstruction (principal); F41.9 Anxiety disorder, unspecified; F17.210 Nicotine dependence, cigarettes, uncomplicated

== ENCOUNTER 2017-01-12 15:55 | Emergency (ER) | payer OTHER ==
[2017-01-12 15:55] VITALS: BMI 21.5
[2017-01-12 16:00] VITALS: BP 117/71; PULSE 74; RESP 18; TEMP 97.5; O2SAT 99
== END 2017-01-12 15:59 | disposition left against medical advice (07) ==
LOC: H.ER 15:55
DX: Z02.89 Encounter for other administrative examinations (principal)

== ENCOUNTER 2017-03-07 17:31 | Emergency (ER) | payer MEDICAID, OTHER ==
[2017-03-07 17:32] VITALS: BMI 21.5
[2017-03-07 17:53] VITALS: PULSE 86; RESP 18; TEMP 98.5; O2SAT 100
== END 2017-03-07 18:26 | disposition left against medical advice (07) ==
LOC: H.ER 17:31
DX: Z02.89 Encounter for other administrative examinations (principal)

== ENCOUNTER 2017-03-07 21:14 | Emergency (ER) | payer OTHER ==
[2017-03-07 21:14] VITALS: BMI 21.5
[2017-03-07 21:34] VITALS: BP 106/61; PULSE 82; RESP 18; TEMP 98.3; O2SAT 99
--- NOTE | 2017-03-07 22:02 | ED PDOC ---
HPI: Abdomen Time Seen by Provider: 03/07/17 21:43 Chief Complaint (Nursing): Abdominal Pain Chief Complaint (Provider): Abd pain History Per: Patient History/Exam Limitations: no limitations Onset/Duration Of Symptoms: Days (today) Outside of [place] travel?: No Additional Complaint(s): Pt. with suprapubic pain. No dysuria. States pain off and on and now more constant. Pt. with no nausea, vomit, diarrhea, weakness. States moving his bowel with no issues. No chest pain, dyspnea, weakness, headaches. No back pain. No fever. Here earlier today and decided to just leave before being seen. Was at [facility] yesterday for detox. No etoh, drugs, new food or drinks. Past Medical History Reviewed: Nursing Documentation, Vital Signs Vital Signs: Last Vital Signs Temp 98.3 F 03/07/17 21:31 Pulse 82 03/07/17 21:31 Resp 18 03/07/17 21:31 BP 106/61 03/07/17 21:31 Pulse Ox 99 03/07/17 22:11 - Medical History PMH: Obstructive Bowel Denies: Diabetes, Hepatitis, HIV, HTN, Chronic Kidney Disease, Seizures, Sexually Transmitted Disease - Surgical History Other surgeries: bowel obstruction surgery - Family History Family History: States: Unknown Family Hx - Social History Current smoker - smoking cessation education provided: No Alcohol: None Drugs: Denies - Immunization History Hx Tetanus Toxoid Vaccination: No Hx Influenza Vaccination: No Hx Pneumococcal Vaccination: No - Home Medications Home Medications: Ambulatory Orders Medication Instructions Recorded No Known Home Med 01/05/17 - Allergies Allergies/Adverse Reactions: Allergies Allergy/AdvReac Type Severity Reaction Status Date / Time No Known Allergies Allergy Verified 03/06/17 21:19 Review of Systems ROS Statement: Except As Marked, All Systems Reviewed And Found Negative Gastrointestinal: Positive for: Abdominal Pain Physical Exam - Reviewed Nursing Documentation Reviewed: Yes - Physical Exam Appears: Positive for: Non-toxic, No Acute Distress Head Exam: Positive for: ATRAUMATIC, NORMAL INSPECTION, NORMOCEPHALIC Skin: Positive for: Normal Color, Warm, DRY Eye Exam: Positive for: EOMI, Normal appearance, PERRL ENT: Positive for: Normal ENT Inspection Neck: Positive for: Normal, Painless ROM Cardiovascular/Chest: Positive for: Regular Rate, Rhythm Respiratory: Positive for: CNT, Normal Breath Sounds Gastrointestinal/Abdominal: Positive for: Bowel Sounds, Soft, Tenderness (mild suprapubic; nontender on distraction). Negative for: Distended, Guarding, Rebound Back: Positive for: Normal Inspection. Negative for: L CVA Tenderness, R CVA Tenderness Extremity: Positive for: Normal ROM. Negative for: Tenderness, Pedal Edema Neurologic/Psych: Positive for: Alert, Oriented - ECG O2 Sat by Pulse Oximetry: 99 - Progress ED Course And Treament: 1051: Pt. not found in room. Pt. was aaox3 last seen. Demanding narcotics when last seen. Pt. walking without issues. Pt. left before treatment and evaluation complete. Disposition - Clinical Impression Clinical Impression: Abdominal pain, Chronic pain - Disposition Disposition: Left W/O Treatment Disposition Time: 22:53 Condition: STABLE
[2017-03-07] MEDS ORDERED: Sodium Chloride 0.9% 1,000 ML IV STA (22:03)
== END 2017-03-07 22:05 | disposition left against medical advice (07) ==
LOC: H.ER 21:14
DX: Z02.89 Encounter for other administrative examinations (principal)

== ENCOUNTER → 2017-03-28 | Emergency (ER) | payer OTHER ==
[2017-03-28 17:06] VITALS: BMI 21.5
[2017-03-28 17:13] VITALS: BP 135/74; PULSE 94; RESP 20; TEMP 98.1; O2SAT 98
--- NOTE | 2017-03-28 17:33 | ED PDOC ---
HPI:Nausea, Vomiting, Diarrhea Time Seen by Provider: 03/28/17 17:11 Chief Complaint (Nursing): GI Problem Chief Complaint (Provider): nausea and vomiting History Per: Patient History/Exam Limitations: no limitations Onset/Duration Of Symptoms: Days (2) Associated Symptoms: Chills, Nausea, Vomiting, Diarrhea, Loss Of Appetite Exacerbating Factors: None Alleviating Factors: None Additional Complaint(s): Pt reports that he is withdrawing from heroin and requests to be admitted for this. Against Medical Advice - AMA Patient Left Against Medical Advice: The patient declines admission to the hospital and wishes to leave the Emergency Department. This action is against my medical advice. This decision was made with informed refusal. The patient was told that admission to the hospital is necessary. Explanation of the reasons why were discussed. The risks of leaving were explained to the patient and include, but are not limited to, worsening of known or currently unknown conditions, permanent disability and from undiagnosed or untreated conditions. The patient has the capacity to make this informed decision and understands my explanation of the current medical problem and risks of leaving. The patient voluntarily accepts these risks and signed an AMA form documenting our conversation. The patient was given the opportunity to ask questions and reconsider. The patient was encouraged to return to the Emergency Department at any time for further care. Past Medical History Reviewed: Historical Data, Nursing Documentation, Vital Signs Vital Signs: Last Vital Signs Temp 98.1 F 03/28/17 17:10 Pulse 94 H 03/28/17 17:10 Resp 20 03/28/17 17:10 BP 135/74 03/28/17 17:10 Pulse Ox 98 03/28/17 17:10 - Medical History PMH: Anxiety, Back Problems (herniated discs), Obstructive Bowel Denies: Diabetes, Hepatitis, HIV, HTN, Chronic Kidney Disease, Seizures, Sexually Transmitted Disease - Family History Family History: States: Unknown Family Hx - Immunization History Hx Tetanus Toxoid Vaccination: No Hx Influenza Vaccination: No Hx Pneumococcal Vaccination: No - Home Medications Home Medications: Ambulatory Orders Medication Instructions Recorded No Known Home Med 01/05/17 - Allergies Allergies/Adverse Reactions: Allergies Allergy/AdvReac Type Severity Reaction Status Date / Time No Known Allergies Allergy Verified 03/06/17 21:19 Review of Systems ROS Statement: Except As Marked, All Systems Reviewed And Found Negative Constitutional: Positive for: Weakness, Malaise Gastrointestinal: Positive for: Nausea, Vomiting, Abdominal Pain, Diarrhea Psych: Positive for: Withdrawal. Negative for: Suicidal ideation Physical Exam - Reviewed Nursing Documentation Reviewed: Yes Vital Signs Reviewed: Yes - Physical Exam Appears: Positive for: Non-toxic, Uncomfortable Head Exam: Positive for: ATRAUMATIC, NORMOCEPHALIC Skin: Positive for: Warm, Dry, Diaphoresis Eye Exam: Positive for: EOMI, PERRL ENT: Positive for: Other (dry muc memb) Neck: Positive for: Painless ROM, Supple Cardiovascular/Chest: Positive for: Regular Rate, Rhythm, Chest Non Tender Respiratory: Positive for: Normal Breath Sounds. Negative for: Respiratory Distress Gastrointestinal/Abdominal: Positive for: Soft. Negative for: Tenderness Back: Positive for: Normal Inspection. Negative for: Muscle Spasm Extremity: Positive for: Normal ROM. Negative for: Deformity Lymphatic: Negative for: Adenopathy Neurologic/Psych: Positive for: Alert. Negative for: Motor/Sensory Deficits - ECG O2 Sat by Pulse Oximetry: 98 - Progress ED Course And Treament: Pt with vomiting/diarrhea that he reports is due withdrawal. Advised that he likely needs some IVF and can give meds for current symptoms. However cannot guarantee any need for hospitalization at this time. Pt refusing to stay for any treatment or workup. AMA risks/benefits discussed but he refused to stay to sign AMA paperwork. Disposition - Clinical Impression Clinical Impression: Vomiting and diarrhea, Opioid dependence - Disposition Disposition: Against Medical Advice Disposition Time: 17:30 Condition: UNKNOWN
== END | disposition home or self-care (01) ==
LOC: H.ER 17:06
DX: F11.20 Opioid dependence, uncomplicated (principal); R19.7 Diarrhea, unspecified; R11.11 Vomiting without nausea

== ENCOUNTER 2017-05-27 13:46 | Emergency (ER) | payer OTHER ==
[2017-05-27 13:47] VITALS: BMI 21.5
[2017-05-27 13:55] VITALS: BP 135/84; PULSE 79; RESP 16; TEMP 97.8; O2SAT 96
--- NOTE | 2017-05-27 14:20 | ED PDOC ---
HPI: Psych/Substance Abuse Time Seen by Provider: 05/27/17 13:56 Chief Complaint (Nursing): Psychiatric Evaluation Chief Complaint (Provider): Memory Loss History Per: Patient History/Exam Limitations: no limitations Onset/Duration Of Symptoms: Days (x2 days) Current Symptoms Are (Timing): Still Present Additional Complaint(s): Fortino Seymour, a 51 year old male, presents to the ED complaining of memory loss x2 days. The patient states that he knows that his in October but today the felt more recent. 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 Patient states that he currently cannot remember speaking to said nurse. Denies Homicidal ideation/Suicidal ideation, weakness or tingling to arms and legs, headache, vision changes. 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 Past Medical History Reviewed: Historical Data, Nursing Documentation, Vital Signs Vital Signs: Last Vital Signs Temp 97.8 F 05/27/17 13:52 Pulse 79 05/27/17 13:52 Resp 16 05/27/17 13:52 BP 135/84 05/27/17 13:52 Pulse Ox 96 05/27/17 13:52 - Medical History PMH: Anxiety, Back Problems (herniated discs), Obstructive Bowel Denies: Diabetes, Hepatitis, HIV, HTN, Chronic Kidney Disease, Seizures, Sexually Transmitted Disease - Surgical History Surgical History: No Surg Hx - Family History Family History: States: Unknown Family Hx - Social History Current smoker - smoking cessation education provided: No Drugs: Opiates - Immunization History Hx Tetanus Toxoid Vaccination: No Hx Influenza Vaccination: No Hx Pneumococcal Vaccination: No - Home Medications Home Medications: Ambulatory Orders Medication Instructions Recorded Ondansetron ODT [Zofran ODT] 1 odt PO BID PRN #6 odt 04/03/17 - Allergies Allergies/Adverse Reactions: Allergies Allergy/AdvReac Type Severity Reaction Status Date / Time aspirin AdvReac VOMITING Verified 05/27/17 13:55 Review of Systems ROS Statement: Except As Marked, All Systems Reviewed And Found Negative Eyes: Negative for: Vision Change Neurological: Positive for: Other (Memory loss). Negative for: Weakness, Numbness (denie snumbness and tingling to arms and legs) Physical Exam - Reviewed Nursing Documentation Reviewed: Yes Vital Signs Reviewed: Yes - Physical Exam Appears: Positive for: Non-toxic, No Acute Distress Head Exam: Positive for: ATRAUMATIC, NORMAL INSPECTION, NORMOCEPHALIC Skin: Positive for: Normal Color, Warm, Dry. Negative for: Rash Eye Exam: Positive for: Normal appearance, EOMI, PERRL ENT: Positive for: Normal ENT Inspection Cardiovascular/Chest: Positive for: Regular Rate, Rhythm, Chest Non Tender. Negative for: Tachycardia Respiratory: Positive for: Normal Breath Sounds. Negative for: Wheezing, Respiratory Distress Gastrointestinal/Abdominal: Positive for: Normal Exam, Bowel Sounds, Soft. Negative for: Tenderness, Mass, Guarding, Rebound Back: Positive for: Normal Inspection. Negative for: L CVA Tenderness, R CVA Tenderness Extremity: Positive for: Normal ROM. Negative for: Tenderness, Pedal Edema, Deformity, Swelling Neurologic/Psych: Positive for: Alert, cylinder batcher II-XII (cranial nerves intact), Oriented, Cerebellar Tests (cerebellar tests normal), Gait. Negative for: Motor /Sensory Deficits, Facial Droop - ECG O2 Sat by Pulse Oximetry: 96 (RA) Pulse Ox Interpretation: Normal Medical Decision Making Medical Decision Makin Initial Impression: 51 year old male presenting with memory loss Initial Plan: * CT head w/o Contrast * Drug Screen * Urinalysis * Reevaluation CT head: no ICH/lesion advised to f.u with pmd, memory loss may be attributed to years of drug abuse and cognitive decline. Scribe Attestation Documented by Mirian Smith acting as a scribe for Kiya Patel PA-C. MD Scribe Attestation All medical record entries made by the Scribe were at my direction and personally dictated by me. I have reviewed the chart and agree that the record accurately reflects my personal performance of the history, physical exam, medical decision making, and the department course for this patient. I have also personally directed, reviewed, and agree with the discharge instructions and disposition. Disposition - Clinical Impression Clinical Impression: Memory changes - Patient ED Disposition Is Patient to be Admitted: No Counseled Patient/Family Regarding: Studies Performed, Diagnosis, Need For Followup - Disposition Disposition: Routine/Home Disposition Time: 16:30 Condition: STABLE Instructions: Polysubstance Abuse (ED) Forms: [employer] Connect (Hungarian)
[2017-05-27 15:23] LABS: BARBITURATES, UR NEGATIVE (NEGATIVE); BENZODIAZEPINES, UR NEGATIVE (NEGATIVE); OPIATES, UR POSITIVE (NEGATIVE); PHENCYCLIDINE, UR NEGATIVE (NEGATIVE)
[2017-05-27 15:31] LABS: SQUAMOUS EPITHIAL < 1 /hpf (0-5); URINE BILIRUBIN NEGATIVE (NEGATIVE); URINE BLOOD NEGATIVE (NEGATIVE); URINE CLARITY SLIGHTY-CLOUDY (Clear); URINE COLOR AMBER (YELLOW); URINE GLUCOSE (UA) NEG (Normal); URINE LEUKOCYTE ESTERASE NEG Leu/uL (Negative); URINE NITRATE NEGATIVE (NEGATIVE); URINE PROTEIN 100 mg/dL (NEGATIVE); URINE UROBILINOGEN 0.2-1.0 mg/dL (0.2-1.0)
--- NOTE | 2017-05-27 15:52 | CT ---
PROCEDURE: CT scan brain 05/27/2017 HISTORY: Acute memory loss. COMPARISON: Comparison made with CT scan abdomen and pelvis dated 03/10/2010. TECHNIQUE: Axial computed tomography images were obtained through the head/brain without intravenous contrast. Radiation dose: Total exam DLP = 742.54 mGy-cm. This CT exam was performed using one or more of the following dose reduction techniques: Automated exposure control, adjustment of the mA and/or kV according to patient size, and/or use of iterative reconstruction technique. FINDINGS: HEMORRHAGE: No intra acute parenchymal, subarachnoid or extra-axial BRAIN: No evidence of large acute infarct. No obvious parenchymal nor extra-axial mass or collection seen on this noncontrast study. . Ventricular and sulcal size are within range of normal for this patient's stated age. VENTRICLES: No obstructive hydrocephalus CALVARIUM: Unremarkable. PARANASAL SINUSES: Unremarkable as visualized. No significant inflammatory changes. MASTOID AIR CELLS: Unremarkable as visualized. No inflammatory changes. OTHER FINDINGS: None. IMPRESSION: No acute intracranial hemorrhage.
== END 2017-05-27 16:38 | disposition home or self-care (01) ==
LOC: H.ER 13:46
DX: R41.3 Other amnesia (principal); F41.9 Anxiety disorder, unspecified

== ENCOUNTER 2017-09-12 18:21 | Emergency (ER) | payer OTHER ==
[2017-09-12 18:21] VITALS: BMI 21.5
[2017-09-12 18:30] VITALS: BP 105/57; PULSE 67; RESP 18; TEMP 97.3; O2SAT 99
[2017-09-12] MEDS ORDERED: Sodium Chloride 0.9% 1,000 ML IV STA (18:49)
--- NOTE | 2017-09-12 18:52 | ED PDOC ---
HPI: Abdomen Time Seen by Provider: 09/12/17 18:46 Chief Complaint (Nursing): Abdominal Pain History Per: Patient Onset/Duration Of Symptoms: Days (2) Current Symptoms Are (Timing): Still Present Severity: Mild Pain Scale Rating Of: 2 Location Of Pain/Discomfort: RLQ Quality Of Discomfort: Unable To Describe Associated Symptoms: Fever, Diarrhea. denies: Urinary Symptoms Exacerbating Factors: None Alleviating Factors: None Additional Complaint(s): RLQ abd pain x 2 days assoc with diarrhea. No bleeding. No vomiting. Past Medical History Vital Signs: Last Vital Signs Temp 97.3 F L 09/12/17 18:28 Pulse 67 09/12/17 18:28 Resp 18 09/12/17 18:28 BP 105/57 L 09/12/17 18:28 Pulse Ox 99 09/12/17 18:28 - Medical History PMH: Anxiety, Back Problems (herniated discs), Obstructive Bowel Denies: Diabetes, Hepatitis, HIV, HTN, Chronic Kidney Disease, Seizures, Sexually Transmitted Disease - Family History Family History: States: Unknown Family Hx - Immunization History Hx Tetanus Toxoid Vaccination: No Hx Influenza Vaccination: No Hx Pneumococcal Vaccination: No - Home Medications Home Medications: Ambulatory Orders Medication Instructions Recorded Ondansetron ODT [Zofran ODT] 1 odt PO BID PRN #6 odt 04/03/17 - Allergies Allergies/Adverse Reactions: Allergies Allergy/AdvReac Type Severity Reaction Status Date / Time aspirin AdvReac VOMITING Verified 05/27/17 13:55 Review of Systems ROS Statement: Except As Marked, All Systems Reviewed And Found Negative Gastrointestinal: Positive for: Abdominal Pain, Diarrhea Physical Exam - Reviewed Nursing Documentation Reviewed: Yes Vital Signs Reviewed: Yes - Physical Exam Appears: Positive for: Non-toxic, No Acute Distress Head Exam: Positive for: ATRAUMATIC, NORMAL INSPECTION, NORMOCEPHALIC Skin: Positive for: Normal Color, Warm, DRY Eye Exam: Positive for: EOMI, Normal appearance, PERRL ENT: Positive for: Normal ENT Inspection Neck: Positive for: Normal, Painless ROM Cardiovascular/Chest: Positive for: Regular Rate, Rhythm Respiratory: Positive for: CNT, Normal Breath Sounds Gastrointestinal/Abdominal: Positive for: Bowel Sounds, Soft, Tenderness (RLQ) Back: Positive for: Normal Inspection Extremity: Positive for: Normal ROM Neurologic/Psych: Positive for: Alert, Oriented - ECG O2 Sat by Pulse Oximetry: 99 Disposition - Clinical Impression Clinical Impression: Abdominal pain - Patient ED Disposition Is Patient to be Admitted: Transfer of Care - Disposition Disposition: Transfer of Care Disposition Time: 19:00 Condition: FAIR Patient Signed Over To: Adryan Aguilar
[2017-09-12 19:32] LABS: ALB/GLOB RATIO 1.4 (1.0-2.1); ALKALINE PHOSPHATASE 75 U/L (38-126); ALT/SGPT 33 U/L (21-72); AST/SGOT 34 U/L (17-59); BILIRUBIN,TOTAL 0.3 mg/dl (0.2-1.3); BLOOD UREA NITROGEN 14 mg/dl (9-20); CALCIUM 8.4 mg/dL (8.4-10.2); CARBON DIOXIDE 27 mmol/L (22-30); CHLORIDE 107 mmol/L (98-107); GFR AFRICAN-AMERICAN > 60; GLUCOSE,RANDOM 100 mg/dL (75-110); POTASSIUM 4.3 MMOL/L (3.6-5.0); SODIUM 142 mmol/l (132-148); TOTAL PROTEIN 7.5 G/DL (6.3-8.2)
[2017-09-12 19:33] LABS: BASO % 0.4 % (0.0-2.0); EOS # 0.2 K/uL (0.0-0.7); EOS % 2.5 % (0.0-4.0); HEMATOCRIT 38.9 % (35.0-51.0); LYMPH # 1.7 K/uL (1.0-4.3); LYMPH % 24.7 % (20.0-40.0); MEAN CELL VOLUME 99.9 fl (80.0-94.0); MEAN CORPUSCULAR HEMOGLOBIN 33.5 pg (27.0-31.0); MEAN CORPUSCULAR HGB CONC 33.5 g/dL (33.0-37.0); MEAN PLATELET VOLUME 9.4 fl (7.2-11.7); MONO # 0.4 K/uL (0.0-0.8); MONO % 5.3 % (0.0-10.0); NEUT # 4.5 K/uL (1.8-7.0); NEUT % 67.1 % (50.0-75.0); NRBC % 0.1 % (0.0-0.0); RED CELL DISTRIBUTION WIDTH 12.8 % (11.5-14.5); WHITE BLOOD COUNT 6.7 K/uL (4.8-10.8)
--- NOTE | 2017-09-12 19:36 | ED PDOC ---
- Laboratory Results Result Diagrams: 09/12/17 19:07 09/12/17 19:07 - ECG O2 Sat by Pulse Oximetry: 99 - Progress Re-evaluation Time: 22:04 Condition: Re-examined, Improved Medical Decision Making Medical Decision Making: Time: 19:00 --Transfer of care endorsed by Dr. Braxton Helm MD CT abdomen FINDINGS: Lower thorax: Bibasilar atelectasis (right greater than left), an interval change from previous examination. ABDOMEN: Liver: The liver is enlarged and demonstrates diffuse fatty infiltration. Gallbladder and bile ducts: The gallbladder is decompressed. No calcified stones. No significant intra- or extrahepatic biliary ductal dilation. Pancreas: Enhances homogeneously. No ductal dilation. No discrete mass. Spleen: No acute findings. Adrenals: No acute findings. Kidneys and ureters: No acute findings. No hydronephrosis or renal calculi. No discrete solid mass. PELVIS: Bladder: No acute findings. Reproductive: No acute findings. Appendix: The appendix is of normal caliber (series 3, image 145; series 601, image 43) . ABDOMEN and PELVIS: Stomach and bowel: A fat containing supraumbilical hernia is present. No obstruction. Small bowel wall thickening within the right mid to lower quadrant with trace dilatation, without surrounding inflammation or fluid to confirm an acute enteritis. Peritoneum: As above. Lymph nodes: No pathologically enlarged lymph nodes. Vasculature: Calcified atherosclerotic disease Bones: No acute fracture. IMPRESSION: Normal appendix. Mural thickening within multiple loops of small bowel within the right mid to lower quadrant (with trace dilatation) without surrounding inflammation or fluid to confirm an acute enteritis. Nonobstructing, fat containing supraumbilical hernia. Scribe Attestation: Documented by Anastasia Pearson, acting as a scribe for Adryan Aguilar MD Provider Scribe Attestation: All medical record entries made by the Scribe were at my direction and personally dictated by me. I have reviewed the chart and agree that the record accurately reflects my personal performance of the history, physical exam, medical decision making, and the department course for this patient. I have also personally directed, reviewed, and agree with the discharge instructions and disposition Disposition - Clinical Impression Clinical Impression: Abdominal pain, Enteritis, Diarrhea - POA Present On Arrival: None - Disposition Referrals: [facility] [Outside] Disposition: Routine/Home Disposition Time: 21:50 Condition: GOOD Additional Instructions: Follow up with your PCP in 2-3 days. Prescriptions: Dicyclomine [Dicyclomine HCl] 10 mg PO TID PRN #15 cap PRN Reason: Diarrhea Instructions: Acute Diarrhea (ED)
[2017-09-12] MEDS ORDERED: Iohexol 300 100 ML IJ ONE (19:53)
[2017-09-12] MEDS ORDERED: Sodium Chloride 0.9% 50 ML IV ONE (19:54)
--- NOTE | 2017-09-12 20:51 | CT ---
EXAM: CT Abdomen and Pelvis With Intravenous Contrast CLINICAL HISTORY: 51 years old, male; Pain; Abdominal pain; Localized; Right lower quadrant (rlq); Prior surgery; Surgery date: 6+ months; Surgery type: Obst. Nov 2016; Patient HX: Intest. Obst. ; Additional info: Rlq pain. TECHNIQUE: Axial computed tomography images of the abdomen and pelvis with intravenous contrast. All CT scans at this facility use one or more dose reduction techniques, viz.: automated exposure control; ma/kV adjustment per patient size (including targeted exams where dose is matched to indication; i.e. head); or iterative reconstruction technique. Coronal and sagittal reformatted images were created and reviewed. CONTRAST: 90 mL of [id number] administered intravenously. COMPARISON: CT - ABD PELVIS IV CONTRAST ONLY 2017-01-05 04:35 FINDINGS: Lower thorax: Bibasilar atelectasis (right greater than left), an interval change from previous examination. ABDOMEN: Liver: The liver is enlarged and demonstrates diffuse fatty infiltration. Gallbladder and bile ducts: The gallbladder is decompressed. No calcified stones. No significant intra- or extrahepatic biliary ductal dilation. Pancreas: Enhances homogeneously. No ductal dilation. No discrete mass. Spleen: No acute findings. Adrenals: No acute findings. Kidneys and ureters: No acute findings. No hydronephrosis or renal calculi. No discrete solid mass. PELVIS: Bladder: No acute findings. Reproductive: No acute findings. Appendix: The appendix is of normal caliber (series 3, image 145; series 601, image 43) . ABDOMEN and PELVIS: Stomach and bowel: A fat containing supraumbilical hernia is present. No obstruction. Small bowel wall thickening within the right mid to lower quadrant with trace dilatation, without surrounding inflammation or fluid to confirm an acute enteritis. Peritoneum: As above. Lymph nodes: No pathologically enlarged lymph nodes. Vasculature: Calcified atherosclerotic disease Bones: No acute fracture. IMPRESSION: Normal appendix. Mural thickening within multiple loops of small bowel within the right mid to lower quadrant (with trace dilatation) without surrounding inflammation or fluid to confirm an acute enteritis. Nonobstructing, fat containing supraumbilical hernia.
== END 2017-09-12 22:31 | disposition home or self-care (01) ==
LOC: H.ER 18:21
DX: K52.9 Noninfective gastroenteritis and colitis, unspecified (principal); R19.7 Diarrhea, unspecified
CPT/HCPCS: 74177; 80053; 85025; 99282; J7040; Q9967

== ENCOUNTER 2017-11-09 20:33 | Emergency (ER) | payer MEDICAID, OTHER ==
[2017-11-09 20:33] VITALS: BMI 21.5
[2017-11-09 20:37] VITALS: BP 140/91; PULSE 81; RESP 16; TEMP 98; O2SAT 100
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
== END 2017-11-09 22:00 ==
LOC: H.ER 20:33
DX: F43.22 Adjustment disorder with anxiety; F19.10 Other psychoactive substance abuse, uncomplicated

== ENCOUNTER 2017-12-01 00:13 | Emergency (ER) | payer MEDICAID, OTHER ==
[2017-12-01 00:14] VITALS: BMI 21.5
[2017-12-01 01:35] VITALS: BP 119/61; PULSE 88; RESP 16; TEMP 98.7; O2SAT 98
== END 2017-12-01 02:00 | disposition left against medical advice (07) ==
LOC: H.ER 00:13
DX: Z02.89 Encounter for other administrative examinations (principal)

== ENCOUNTER 2017-12-23 00:43 | Emergency (ER) | payer MEDICAID ==
[2017-12-23 00:43] VITALS: BMI 21.5
[2017-12-23 01:03] VITALS: BP 119/61; PULSE 72; RESP 18; TEMP 98.8; O2SAT 99
[2017-12-23] MEDS ORDERED: Naproxen 500 MG TAB PO ONE (01:23)
--- NOTE | 2017-12-23 01:35 | ED PDOC ---
HPI: General Adult Time Seen by Provider: 12/23/17 01:05 Chief Complaint (Nursing): Headache History Per: Patient Additional Complaint(s): Pt. states at approximately 1600 today he developed a gradual onset, bitemporal headache. He took Motrin 600mg at 1630 with moderate relief. Headache is currently minimal. Further states that he's this headache in the past and he attributes it to his migraines. Reports he's had CT's and MRI's of his head done for this headache which only showed a sinus infection. Also reports he's had worst headaches than this episode. Denies head injury, fever, N/V, visual changes, light sensitivity, sudden onset of headache, numbness, tingling, neck pain. Past Medical History Reviewed: Historical Data, Nursing Documentation, Vital Signs Vital Signs: Last Vital Signs Temp 98.8 F 12/23/17 00:59 Pulse 72 12/23/17 00:59 Resp 18 12/23/17 00:59 BP 119/61 12/23/17 00:59 Pulse Ox 99 12/23/17 01:37 - Medical History PMH: Anxiety, Back Problems (herniated discs), Obstructive Bowel Denies: Diabetes, Hepatitis, HIV, HTN, Chronic Kidney Disease, Seizures, Sexually Transmitted Disease - Family History Family History: States: No Known Family Hx - Immunization History Hx Tetanus Toxoid Vaccination: No Hx Influenza Vaccination: No Hx Pneumococcal Vaccination: No - Home Medications Home Medications: Ambulatory Orders Medication Instructions Recorded No Known Home Med 11/28/17 - Allergies Allergies/Adverse Reactions: Allergies Allergy/AdvReac Type Severity Reaction Status Date / Time aspirin AdvReac VOMITING Verified 12/23/17 00:58 Review of Systems ROS Statement: Except As Marked, All Systems Reviewed And Found Negative Neurological: Positive for: Headache Physical Exam - Physical Exam Appears: Positive for: Well, Non-toxic, No Acute Distress Head Exam: Positive for: ATRAUMATIC, NORMAL INSPECTION, NORMOCEPHALIC Skin: Positive for: Normal Color, Warm. Negative for: Rash Eye Exam: Positive for: EOMI, Normal appearance, PERRL ENT: Positive for: Normal ENT Inspection. Negative for: Sinus Pain/Drainage Neck: Positive for: Normal, Painless ROM Cardiovascular/Chest: Positive for: Regular Rate, Rhythm Respiratory: Positive for: CNT, Normal Breath Sounds Gastrointestinal/Abdominal: Positive for: Normal Exam, Soft. Negative for: Tenderness Extremity: Positive for: Normal ROM Neurologic/Psych: Positive for: Alert, Oriented, Gait (steady, unassisted). Negative for: Motor/Sensory Deficits, Aphasia, Facial Droop - ECG O2 Sat by Pulse Oximetry: 99 - Progress ED Course And Treament: Naproxen 500mg PO ordered. As per [place] tv technician pt. placed bed sheets in his bag and left ED. As per RN pt. did not receive Naproxen as he left ED prior to getting medication . Disposition - Clinical Impression Clinical Impression: Acute headache - Disposition Disposition: Eloped Disposition Time: 02:18 Condition: UNKNOWN Forms: [employer] Connect (Lithuanian)
== END 2017-12-23 02:18 | disposition left against medical advice (07) ==
LOC: H.ER 00:43
DX: R51 Headache (principal); F41.9 Anxiety disorder, unspecified

== ENCOUNTER 2018-01-07 23:57 | Emergency (ER) | payer MEDICAID ==
[2018-01-07 23:57] VITALS: BMI 21.5
[2018-01-08 00:24] VITALS: BP 150/87; PULSE 80; RESP 18; TEMP 97.6; O2SAT 98
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
== END 2018-01-08 00:45 | disposition left against medical advice (07) ==
LOC: H.ER 23:57
DX: S00.03XA Contusion of scalp, initial encounter (principal); F17.210 Nicotine dependence, cigarettes, uncomplicated; Y04.2XXA Assault by strike against or bumped into by another person, initial encounter

== ENCOUNTER 2018-02-16 14:13 | Emergency (ER) | payer MEDICAID ==
[2018-02-16 14:13] VITALS: BMI 21.5
[2018-02-16 14:34] VITALS: RESP 16; TEMP 97.1
--- NOTE | 2018-02-16 15:10 | ED PDOC ---
HPI: General Adult Time Seen by Provider: 02/16/18 14:53 Chief Complaint (Nursing): Cough, Cold, Congestion Chief Complaint (Provider): Cough, Sore Throat, Fever History Per: Patient History/Exam Limitations: no limitations Onset/Duration Of Symptoms: Days (x3) Current Symptoms Are (Timing): Still Present Additional Complaint(s): 52 y/o male presenting with cough, sore throat, and fever x3 days. Patient states he didn't take his temperature, but when he felt hot he took Tylenol and sweat and began to sweat so he believes he has a fever. PMD: None provided Past Medical History Reviewed: Historical Data, Nursing Documentation, Vital Signs Vital Signs: Last Vital Signs Temp 97.1 F L 02/16/18 15:24 Pulse 85 02/16/18 15:24 Resp 16 02/16/18 15:24 BP 126/70 02/16/18 15:24 Pulse Ox 100 02/16/18 15:24 - Medical History PMH: Anxiety, Back Problems (herniated discs), Obstructive Bowel Denies: Diabetes, Hepatitis, HIV, HTN, Chronic Kidney Disease, Seizures, Sexually Transmitted Disease - Surgical History Surgical History: No Surg Hx - Family History Family History: States: Unknown Family Hx - Immunization History Hx Tetanus Toxoid Vaccination: No Hx Influenza Vaccination: No Hx Pneumococcal Vaccination: No - Home Medications Home Medications: Ambulatory Orders Medication Instructions Recorded Amoxicillin/Clavulanate [Augmentin 1 tab PO BID #20 tab 02/16/18 875 MG-125 MG] Loratadine [Claritin] 10 mg PO DAILY #14 tab 02/16/18 - Allergies Allergies/Adverse Reactions: Allergies Allergy/AdvReac Type Severity Reaction Status Date / Time aspirin AdvReac VOMITING Verified 01/08/18 00:20 Review of Systems ROS Statement: Except As Marked, All Systems Reviewed And Found Negative Constitutional: Positive for: Fever ENT: Positive for: Throat Pain Respiratory: Positive for: Cough Physical Exam - Reviewed Nursing Documentation Reviewed: Yes Vital Signs Reviewed: Yes - Physical Exam Appears: Positive for: Non-toxic, No Acute Distress Head Exam: Positive for: ATRAUMATIC, NORMAL INSPECTION, NORMOCEPHALIC Skin: Positive for: Normal Color, Warm, Dry Eye Exam: Positive for: EOMI, Normal appearance, PERRL ENT: Positive for: Normal ENT Inspection Neck: Positive for: Normal, Painless ROM, Supple Cardiovascular/Chest: Positive for: Regular Rate, Rhythm. Negative for: Murmur Respiratory: Positive for: Normal Breath Sounds. Negative for: Respiratory Distress Gastrointestinal/Abdominal: Positive for: Normal Exam, Soft. Negative for: Tenderness Back: Positive for: Normal Inspection. Negative for: L CVA Tenderness, R CVA Tenderness, Vertebral Tenderness Extremity: Positive for: Normal ROM. Negative for: Pedal Edema, Deformity Neurologic/Psych: Positive for: Alert, Oriented. Negative for: Motor/Sensory Deficits - ECG O2 Sat by Pulse Oximetry: 99 (RA) Pulse Ox Interpretation: Normal Medical Decision Making Medical Decision Makin:07 Impression: URI Patient is medically stable and will be discharged with rx for Claritin and Augmentin. Patient instructed to return if symptoms continue or worsen. Advised to followup with PCP. Scribe Attestation: Documented by Janak Hess, acting as a scribe for Ananya Díaz PA-C. Provider Scribe Attestation: All medical record entries made by the Scribe were at my direction and personally dictated by me. I have reviewed the chart and agree that the record accurately reflects my personal performance of the history, physical exam, medical decision making, and the department course for this patient. I have also personally directed, reviewed, and agree with the discharge instructions and disposition. Disposition - Clinical Impression Clinical Impression: URI (upper respiratory infection) - Patient ED Disposition Is Patient to be Admitted: No - Disposition Disposition: Routine/Home Disposition Time: 23:27 Condition: STABLE Prescriptions: Amoxicillin/Clavulanate [Augmentin 875 MG-125 MG] 1 tab PO BID #20 tab Loratadine [Claritin] 10 mg PO DAILY #14 tab Instructions: Bacterial Upper Respiratory Infection, Adult (DC) Forms: [employer] (Moroccan)
[2018-02-16 15:26] VITALS: BP 126/70; PULSE 85
[2018-02-16 23:27] VITALS: O2SAT 99
== END 2018-02-16 15:28 | disposition home or self-care (01) ==
LOC: H.ER 14:13
DX: J06.9 Acute upper respiratory infection, unspecified (principal); F41.9 Anxiety disorder, unspecified

== ENCOUNTER 2018-02-17 15:51 | Emergency (ER) | payer MEDICAID ==
[2018-02-17 15:51] VITALS: BMI 21.5
[2018-02-17 15:55] VITALS: O2SAT 100
[2018-02-17] MEDS ORDERED: Alum-Mag Hydrox-Simethicone Susp (30 mL) PO STA (16:08)
--- NOTE | 2018-02-17 16:17 | ED PDOC ---
HPI: Chest Pain Time Seen by Provider: 02/17/18 15:57 Chief Complaint (Nursing): Chest Pain Chief Complaint (Provider): Chest Pain History Per: Patient History/Exam Limitations: no limitations Onset/Duration Of Symptoms: Hrs Current Symptoms Are (Timing): Still Present Associated Symptoms: Nausea Additional Complaint(s): Fortino Seymour is a 52 year old male with a past medical history of anxiety, who was brought to the ED by Kylee SWENSON for evaluation of midsternal non-radiating chest pain onset 1 hour prior to arrival, while patient was under arrest. Patient has a history of heroin abuse, approximately 10 bags a day. He reports that he thinks he is having withdrawal symptoms and reports non-bloody non-bilious vomiting. Patient also complains of shortness of breath and chills, but denies any fevers, cough, or leg swelling. PMD: none provided Past Medical History Reviewed: Historical Data, Nursing Documentation, Vital Signs Vital Signs: Last Vital Signs Temp 98.1 F 02/17/18 15:53 Pulse 66 02/17/18 18:55 Resp 18 02/17/18 18:55 BP 138/89 02/17/18 18:55 Pulse Ox 100 02/17/18 19:20 - Medical History PMH: Anxiety, Back Problems (herniated discs), Obstructive Bowel Denies: Diabetes, Hepatitis, HIV, HTN, Chronic Kidney Disease, Seizures, Sexually Transmitted Disease - Surgical History Other surgeries: Bowel Obstruction - Family History Family History: States: Unknown Family Hx - Social History Current smoker - smoking cessation education provided: Yes Alcohol: None Drugs: Cannabis, Opiates - Immunization History Hx Tetanus Toxoid Vaccination: No Hx Influenza Vaccination: No Hx Pneumococcal Vaccination: No - Home Medications Home Medications: Ambulatory Orders Medication Instructions Recorded Amoxicillin/Clavulanate [Augmentin 1 tab PO BID #20 tab 02/16/18 875 MG-125 MG] Loratadine [Claritin] 10 mg PO DAILY #14 tab 02/16/18 - Allergies Allergies/Adverse Reactions: Allergies Allergy/AdvReac Type Severity Reaction Status Date / Time aspirin AdvReac VOMITING Verified 01/08/18 00:20 Review of Systems ROS Statement: Except As Marked, All Systems Reviewed And Found Negative Constitutional: Positive for: Chills. Negative for: Fever Cardiovascular: Positive for: Chest Pain Respiratory: Positive for: Shortness of Breath. Negative for: Cough Gastrointestinal: Positive for: Nausea, Vomiting Musculoskeletal: Negative for: Other (leg swelling) Physical Exam - Reviewed Nursing Documentation Reviewed: Yes Vital Signs Reviewed: Yes - Physical Exam Appears: Positive for: Non-toxic, In Acute Distress Skin: Positive for: Warm, Dry Eye Exam: Positive for: EOMI, PERRL ENT: Positive for: Pharynx Is (clear), Other (dry mucous membranes) Neck: Positive for: Painless ROM, Supple Cardiovascular/Chest: Positive for: Regular Rate, Rhythm. Negative for: Murmur Respiratory: Positive for: Normal Breath Sounds. Negative for: Respiratory Distress Gastrointestinal/Abdominal: Positive for: Soft. Negative for: Tenderness Back: Positive for: Normal Inspection. Negative for: Decreased ROM Extremity: Positive for: Normal ROM. Negative for: Deformity Lymphatic: Negative for: Adenopathy Neurologic/Psych: Positive for: Alert, Mood/Affect (anxious). Negative for: Motor/Sensory Deficits - Laboratory Results Result Diagrams: 02/17/18 16:20 02/17/18 16:20 - ECG O2 Sat by Pulse Oximetry: 100 (RA) Pulse Ox Interpretation: Normal Medical Decision Making Medical Decision Making: Time: 16:02 Impression: Chest Pain Differentials: Low-risk ACS, Opiate withdrawal, reflux, anxiety/stress, costochondritis Plan: --EKG --CMP --Magnesium --Phosphorous --Troponin --CBC --CXR --Maalox 30 ml PO --Lidocaine 10 ml pO --Pepcid 40 mg PO --Zofran 4 mg IVP Chest X-Ray: FINDINGS: LUNGS: No active pulmonary disease. PLEURA: No significant pleural effusion identified, no pneumothorax apparent. CARDIOVASCULAR: Normal. OSSEOUS STRUCTURES: No significant abnormalities. VISUALIZED UPPER ABDOMEN: Normal. OTHER FINDINGS: None. IMPRESSION: No interval acute cardiopulmonary disease appreciated. Labs unremarkable. 640p Evaluated by CW who dw Dr Whitehead. Pt psychiatrically stable for dc with drug abuse services. 655p Pt was about to be discharged when he vomited. IV Zofran/pepcid and IVF ordered. 730p RN reports that pt complained of arm pain upon administration of IV pepcid. IV site appeared to have minor extravasation. Pt reports he feels better anyway and eager to be discharged to police custody. Scribe Attestation: Documented by Kori Ibanez, acting as a scribe for Zaynab London MD. Provider Scribe Attestation: All medical record entries made by the Scribe were at my direction and personally dictated by me. I have reviewed the chart and agree that the record accurately reflects my personal performance of the history, physical exam, medical decision making, and the department course for this patient. I have also personally directed, reviewed, and agree with the discharge instructions and disposition. Disposition - Clinical Impression Clinical Impression: Chest pain, Opioid dependence Counseled Patient/Family Regarding: Studies Performed, Diagnosis - Disposition Disposition: Routine/Home Disposition Time: 18:44 Condition: STABLE Additional Instructions: MEDICALLY AND PSYCHIATRICALLY STABLE FOR INCARCERATION RECOMMEND DRUG ADDICTION SERVICE IN HALFWAY IF NECESSARY Instructions: Chest Pain (DC), Drug Abuse and Drug Addiction (DC)
--- NOTE | 2018-02-17 16:27 | RAD ---
HISTORY: chest pain COMPARISON: Frontal chest radiograph 01/05/2017. FINDINGS: LUNGS: No active pulmonary disease. PLEURA: No significant pleural effusion identified, no pneumothorax apparent. CARDIOVASCULAR: Normal. OSSEOUS STRUCTURES: No significant abnormalities. VISUALIZED UPPER ABDOMEN: Normal. OTHER FINDINGS: None. IMPRESSION: No interval acute cardiopulmonary disease appreciated.
[2018-02-17] MEDS ORDERED: Alum-Mag Hydrox-Simethicone Susp (30 mL) ONE (16:31)
[2018-02-17 16:35] LABS: BASO % 0.4 % (0.0-2.0); EOS # 0.1 K/uL (0.0-0.7); EOS % 1.2 % (0.0-4.0); HEMOGLOBIN 14.7 g/dL (12.0-18.0); LYMPH # 1.3 K/uL (1.0-4.3); LYMPH % 15.7 % (20.0-40.0); MEAN CELL VOLUME 93.4 fl (80.0-94.0); MEAN CORPUSCULAR HEMOGLOBIN 31.7 pg (27.0-31.0); MEAN PLATELET VOLUME 8.6 fl (7.2-11.7); MONO # 0.4 K/uL (0.0-0.8); MONO % 4.4 % (0.0-10.0); NEUT # 6.5 K/uL (1.8-7.0); NEUT % 78.3 % (50.0-75.0); NRBC % 0.1 % (0.0-0.0); RBC 4.64 Mil/uL (4.40-5.90); RED CELL DISTRIBUTION WIDTH 13.9 % (11.5-14.5); WHITE BLOOD COUNT 8.4 K/uL (4.8-10.8)
[2018-02-17 16:38] LABS: CALCIUM 9.7 mg/dL (8.4-10.2); GFR AFRICAN-AMERICAN > 60; GFR NON-AFRICAN AMERICAN > 60
[2018-02-17 16:49] LABS: ALB/GLOB RATIO 1.1 (1.0-2.1); ALT/SGPT 33 U/L (21-72); AST/SGOT 38 U/L (17-59); BLOOD UREA NITROGEN 16 mg/dl (9-20)
[2018-02-17] MEDS ORDERED: Sodium Chloride 0.9% 1,000 ML IV STA (18:50)
[2018-02-17 20:52] VITALS: BP 107/58; PULSE 59; RESP 16; TEMP 98.3
--- NOTE | 2018-02-20 17:01 | CARD ---
APPROVED REPORT EKG Measurement Heart [id number] MA [id number] [id number] <Conclusion> Normal sinus rhythm Normal ECG baseline artefact
--- NOTE | 2018-02-20 17:01 | CARD ---
APPROVED REPORT EKG Measurement Heart [id number] [place] 154P54 [id number] <Conclusion> Normal sinus rhythm Normal ECG
== END 2018-02-17 20:40 | disposition home or self-care (01) ==
LOC: H.ER 15:51
DX: R07.9 Chest pain, unspecified (principal); F11.20 Opioid dependence, uncomplicated; F17.200 Nicotine dependence, unspecified, uncomplicated

== ENCOUNTER 2018-03-01 16:07 | Emergency (ER) | payer MEDICAID ==
[2018-03-01 16:08] VITALS: BMI 21.5
[2018-03-01 16:14] VITALS: TEMP 99.2
[2018-03-01] MEDS ORDERED: Sodium Chloride 0.9% 1,000 ML IV STA (16:27)
--- NOTE | 2018-03-01 16:43 | ED PDOC ---
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 Pt. also states he hurt his hand when he accidentally slipped yesterday. No numbness, tingles, weakness, dyspnea, wrist or finger pain. No head or neck injury or pain. Past Medical History Reviewed: Nursing Documentation, Vital Signs Vital Signs: Last Vital Signs Temp 99.2 F 03/01/18 16:10 Pulse 70 03/01/18 16:30 Resp 16 03/01/18 16:10 BP 141/55 L 03/01/18 16:10 Pulse Ox 99 03/01/18 17:10 - Medical History PMH: Anxiety, Back Problems (herniated discs) Denies: Diabetes, Hepatitis, HIV, HTN, Chronic Kidney Disease, Seizures, Sexually Transmitted Disease - Surgical History Surgical History: No Surg Hx - Family History Family History: States: Unknown Family Hx - Immunization History Hx Tetanus Toxoid Vaccination: No Hx Influenza Vaccination: No Hx Pneumococcal Vaccination: No - Home Medications Home Medications: Ambulatory Orders Medication Instructions Recorded Amoxicillin/Clavulanate [Augmentin 1 tab PO BID #20 tab 02/16/18 875 MG-125 MG] Loratadine [Claritin] 10 mg PO DAILY #14 tab 02/16/18 - Allergies Allergies/Adverse Reactions: Allergies Allergy/AdvReac Type Severity Reaction Status Date / Time aspirin AdvReac VOMITING Verified 01/08/18 00:20 Review of Systems ROS Statement: Except As Marked, All Systems Reviewed And Found Negative Cardiovascular: Positive for: Chest Pain Musculoskeletal: Positive for: Hand Pain Physical Exam - Reviewed Nursing Documentation Reviewed: Yes Vital Signs Reviewed: Yes - Physical Exam Appears: Positive for: Non-toxic, No Acute Distress Head Exam: Positive for: ATRAUMATIC, NORMAL INSPECTION, NORMOCEPHALIC Skin: Positive for: Normal Color, Warm, DRY Eye Exam: Positive for: EOMI, Normal appearance, PERRL ENT: Positive for: Normal ENT Inspection Neck: Positive for: Normal, Painless ROM Cardiovascular/Chest: Positive for: Regular Rate, Rhythm, Chest Non Tender ( mild sternal). Negative for: Edema Respiratory: Positive for: CNT, Normal Breath Sounds Gastrointestinal/Abdominal: Positive for: Normal Exam, Soft. Negative for: Tenderness Back: Positive for: Normal Inspection. Negative for: L CVA Tenderness, R CVA Tenderness Extremity: Positive for: Normal ROM, Tenderness (R hand dorsal with swelling; fingers and wrist nontender; 2+ radial pulse on R) Neurologic/Psych: Positive for: Alert, Oriented - Laboratory Results Result Diagrams: 03/01/18 16:50 - ECG O2 Sat by Pulse Oximetry: 99 - Radiology X-Ray: Read By Radiologist X-Ray Interpretation: No Acute Disease - Other Rad x-ray hand X-Ray: Read By Radiologist X-Ray Interpretation: fx - Progress ED Course And Treament: 1650: Stable. ASA allergy. Will hold and give tylenol. 1840: Pt. chest pain free. No weakness. No headaches. Not likely ACS considering presentation and time frame with arrest. Spoke with Dr. Miramontes. He reviewed images. States no reduction. Wants a ulnar splint and keep in 90*. FU outpt. AAOx3. Crisis saw pt. and does not meet criteria for admit. Disposition - Clinical Impression Clinical Impression: Hand fracture, Chest pain - Patient ED Disposition Is Patient to be Admitted: No Counseled Patient/Family Regarding: Studies Performed, Diagnosis, Need For Followup - Disposition Referrals: Sumanth Miramontes MD [Medical Doctor] - 03/02/18 [facility] [Outside] - 03/02/18 Disposition: Routine/Home Disposition Time: 18:45 Condition: STABLE Additional Instructions: You are medically and psychiatrically cleared for incarceration. Return if not better in 3 days. Instructions: Chest Pain, Hand Fracture
--- NOTE | 2018-03-01 17:00 | RAD ---
PROCEDURE: Right Hand Radiographs. HISTORY: pain COMPARISON: None. FINDINGS: BONES: An oblique 3rd metacarpal shaft fracture with dorsal apical angulation and distraction of the fractured ends noted. Overlying soft tissue swelling is noted. In addition another fracture at the 5th metatarsal base with angulation deformity suggested here there is some suggestion of some probable periosteal reaction here this fracture site may be more subacute correlate clinically. No dislocation noted. JOINTS: Normal. No osteoarthritic changes. SOFT TISSUES: Normal. OTHER FINDINGS: None. IMPRESSION: Fractured 3rd and 5th metacarpals as noted above.
--- NOTE | 2018-03-01 17:01 | RAD ---
HISTORY: dyspnea COMPARISON: 02/17/2018 FINDINGS: LUNGS: No active pulmonary disease. PLEURA: No significant pleural effusion identified, no pneumothorax apparent. CARDIOVASCULAR: Normal. OSSEOUS STRUCTURES: No significant abnormalities. VISUALIZED UPPER ABDOMEN: Normal. OTHER FINDINGS: None. IMPRESSION: No active disease.
[2018-03-01 17:24] LABS: BASO % 0.5 % (0.0-2.0); EOS # 0.1 K/uL (0.0-0.7); EOS % 0.7 % (0.0-4.0); HEMOGLOBIN 13.2 g/dL (12.0-18.0); LYMPH # 1.3 K/uL (1.0-4.3); LYMPH % 14.7 % (20.0-40.0); MEAN CELL VOLUME 92.6 fl (80.0-94.0); MEAN CORPUSCULAR HEMOGLOBIN 31.3 pg (27.0-31.0); MEAN CORPUSCULAR HGB CONC 33.8 g/dL (33.0-37.0); MONO # 0.4 K/uL (0.0-0.8); MONO % 4.4 % (0.0-10.0); NEUT # 7.1 K/uL (1.8-7.0); NEUT % 79.7 % (50.0-75.0); RBC 4.22 Mil/uL (4.40-5.90); RED CELL DISTRIBUTION WIDTH 13.3 % (11.5-14.5); WHITE BLOOD COUNT 8.9 K/uL (4.8-10.8)
[2018-03-01 18:24] LABS: CALCIUM 9.3 mg/dL (8.4-10.2); GFR AFRICAN-AMERICAN > 60; GFR NON-AFRICAN AMERICAN > 60
[2018-03-01 18:27] VITALS: BP 130/76; PULSE 68; RESP 18
[2018-03-01 18:33] VITALS: O2SAT 99
[2018-03-01 18:35] LABS: BLOOD UREA NITROGEN 14 mg/dl (9-20)
[2018-03-01 18:36] LABS: BARBITURATES, UR NEGATIVE (NEGATIVE); BENZODIAZEPINES, UR NEGATIVE (NEGATIVE); OPIATES, UR POSITIVE (NEGATIVE); PHENCYCLIDINE, UR NEGATIVE (NEGATIVE)
--- NOTE | 2018-03-02 09:13 | CARD ---
APPROVED REPORT EKG Measurement Heart [id number] [id number] <Conclusion> Sinus rhythm with frequent premature ventricular complexes Otherwise normal ECG
== END 2018-03-01 19:01 ==
LOC: H.ER 16:07
DX: S62.91XA Unspecified fracture of right hand, initial encounter for closed fracture (principal); W01.0XXA Fall on same level from slipping, tripping and stumbling without subsequent striking against object, initial encounter; R07.9 Chest pain, unspecified
CPT/HCPCS: 29515; 71045; 73130; 80048; 80320; 80324; 80345; 80346; 80349; 80353; 80358; 80361; 83992; 84484; 85025; 93005; 96360; 99285; J7040

== ENCOUNTER 2019-03-01 16:32 | Emergency (ER) | payer MEDICAID ==
[2019-03-01 16:33] VITALS: BMI 21.5
[2019-03-01 17:43] VITALS: BP 124/50; PULSE 58; RESP 18; TEMP 97.5; O2SAT 98
[2019-03-01] MEDS ORDERED: Iohexol 240 (50 ml) PO ONE (18:41)
--- NOTE | 2019-03-01 18:54 | ED PDOC ---
HPI: Abdomen Time Seen by Provider: 03/01/19 18:25 Chief Complaint (Nursing): Abdominal Pain Chief Complaint (Provider): RLQ Pain History Per: Patient History/Exam Limitations: no limitations Current Symptoms Are (Timing): Still Present Additional Complaint(s): 53 year old male presents to the ED for evaluation of right loer quadrant pain. Patient has scripts with him for blood work and CT from the clinic, but was supposed to be as an outpatient to r/o incarcerated hernia. He notes his last normal bowel movement was yesterday, and denies nausea, vomiting, and diarrhea. Patient additionally reporting chronic right knee pain, which is unchanged from past. Past Medical History Reviewed: Historical Data, Nursing Documentation, Vital Signs Vital Signs: Last Vital Signs Temp 97.5 F L 03/01/19 17:38 Pulse 58 L 03/01/19 17:38 Resp 18 03/01/19 17:38 BP 124/50 L 03/01/19 17:38 Pulse Ox 98 03/01/19 17:38 Primary Care Provider: FAMILY PROVIDER,NO - Medical History PMH: Anxiety, Back Problems (herniated discs), Obstructive Bowel, Chronic Pain (right knee) Denies: Diabetes, Hepatitis, HIV, HTN, Chronic Kidney Disease, Seizures, Sexually Transmitted Disease - Surgical History Surgical History: Hernia Repair Other surgeries: blocked intestine surg - Family History Family History: States: Unknown Family Hx - Social History Current smoker - smoking cessation education provided: Yes SMOKER/PACKS PER DAY:: 1 Drugs: Other (on methadone program) - Immunization History Hx Tetanus Toxoid Vaccination: No Hx Influenza Vaccination: No Hx Pneumococcal Vaccination: No - Home Medications Home Medications: Ambulatory Orders Medication Instructions Recorded Amoxicillin/Clavulanate [Augmentin 1 tab PO BID #20 tab 02/16/18 875 MG-125 MG] Loratadine [Claritin] 10 mg PO DAILY #14 tab 02/16/18 - Allergies Allergies/Adverse Reactions: Allergies Allergy/AdvReac Type Severity Reaction Status Date / Time aspirin AdvReac VOMITING Verified 01/08/18 00:20 Review of Systems ROS Statement: Except As Marked, All Systems Reviewed And Found Negative Gastrointestinal: Positive for: Abdominal Pain (RLQ). Negative for: Nausea, Vomiting, Diarrhea Musculoskeletal: Positive for: Other (chronic right knee pain) Physical Exam - Reviewed Nursing Documentation Reviewed: Yes Vital Signs Reviewed: Yes - Physical Exam Appears: Positive for: No Acute Distress Head Exam: Positive for: ATRAUMATIC Skin: Positive for: Normal Color Eye Exam: Positive for: Normal appearance Neck: Positive for: Normal, Painless ROM, Supple Cardiovascular/Chest: Positive for: Regular Rate, Rhythm Respiratory: Positive for: Normal Breath Sounds. Negative for: Respiratory Distress Gastrointestinal/Abdominal: Positive for: Bowel Sounds, Soft, Tenderness (minimally tender and swollen RLQ), Hernia, Other (multiple scars noted to abdomen). Negative for: Distended, Guarding Back: Positive for: Normal Inspection Extremity: Positive for: Normal ROM (right knee). Negative for: Tenderness (to right knee), Calf Tenderness, Deformity (to right knee), Swelling (to right knee) Neurological/Psych: Positive for: Awake, Alert, Oriented (x3) - Laboratory Results Result Diagrams: 03/01/19 18:40 03/01/19 18:40 - ECG O2 Sat by Pulse Oximetry: 98 (RA) Pulse Ox Interpretation: Normal Medical Decision Making Medical Decision Making: Time: 1840 Initial Impression: abdominal pain rlq r/o incarcerated hernia; also acute on chronic r knee pain pt unable to get toradol, and is on methadone clinic, therefore will give tylenol. also pt appears completely comfortable, ambulating in the ER in no distress. Initial Plan: --CT abd pelvis w PO and IV contrast --CMP --Lipase chem --CBC with differential --Right knee XR --Tylenol 650mg PO x2 - Scribe Attestation: Documented by Kenya Bolivar, acting as a scribe for Adri Galan MD. Provider Scribe Attestation: All medical record entries made by the Scribe were at my direction and personally dictated by me. I have reviewed the chart and agree that the record accurately reflects my personal performance of the history, physical exam, medical decision making, and the department course for this patient. I have also personally directed, reviewed, and agree with the discharge instructions and disposition. Disposition - Clinical Impression Clinical Impression: Abdominal discomfort - Patient ED Disposition Is Patient to be Admitted: Transfer of Care - Disposition Disposition: Transfer of Care Disposition Time: 19:00 Condition: STABLE Forms: [employer] (Greek) Patient Signed Over To: Adryan Aguilar
[2019-03-01 18:59] LABS: BASO % 0.2 % (0.0-2.0); EOS # 0.1 K/uL (0.0-0.7); EOS % 1.8 % (0.0-4.0); HEMOGLOBIN 12.2 g/dL (12.0-18.0); LYMPH # 1.9 K/uL (1.0-4.3); LYMPH % 28.7 % (20.0-40.0); MEAN CORPUSCULAR HEMOGLOBIN 33.2 pg (27.0-31.0); MEAN PLATELET VOLUME 8.7 fl (7.2-11.7); MONO # 0.4 K/uL (0.0-0.8); MONO % 5.5 % (0.0-10.0); NEUT # 4.2 K/uL (1.8-7.0); NEUT % 63.8 % (50.0-75.0); NRBC % 0.1 % (0.0-0.0); RBC 3.66 Mil/uL (4.40-5.90); RED CELL DISTRIBUTION WIDTH 12.3 % (11.5-14.5); WHITE BLOOD COUNT 6.5 K/uL (4.8-10.8)
[2019-03-01 19:02] LABS: MEAN CELL VOLUME 97.8 fl (80.0-94.0)
[2019-03-01 19:09] LABS: ALB/GLOB RATIO 1.4 (1.0-2.1); ALBUMIN 4.3 g/dL (3.5-5.0); ALT/SGPT 29 U/L (21-72); AST/SGOT 28 U/L (17-59); BLOOD UREA NITROGEN 11 mg/dl (9-20); CALCIUM 8.8 mg/dL (8.4-10.2); GFR NON-AFRICAN AMERICAN > 60; LIPASE 15 U/L (23-300)
--- NOTE | 2019-03-01 19:30 | ED PDOC ---
- Laboratory Results Result Diagrams: 03/01/19 18:40 03/01/19 18:40 Lab Results: Total Bilirubin 0.3 mg/dl (0.2-1.3) 03/01/19 18:40 AST 28 U/L (17-59) 03/01/19 18:40 ALT 29 U/L (21-72) 03/01/19 18:40 Alkaline Phosphatase 67 U/L (38-126) 03/01/19 18:40 Total Protein 7.3 G/DL (6.3-8.2) 03/01/19 18:40 Albumin 4.3 g/dL (3.5-5.0) 03/01/19 18:40 Globulin 3.0 gm/dL (2.2-3.9) 03/01/19 18:40 Albumin/Globulin Ratio 1.4 (1.0-2.1) 03/01/19 18:40 Lipase 15 U/L (23-300) L 03/01/19 18:40 - ECG O2 Sat by Pulse Oximetry: 98 (RA) Medical Decision Making Medical Decision Makin Patient care endorsed from Dr. Galan to this provider pending CT abd and final disposition. Scribe Attestation: Documented by Kenya Bolivar, acting as a scribe for Adryan Aguilar MD. Provider Scribe Attestation: All medical record entries made by the Scribe were at my direction and personally dictated by me. I have reviewed the chart and agree that the record accurately reflects my personal performance of the history, physical exam, medical decision making, and the department course for this patient. I have also personally directed, reviewed, and agree with the discharge instructions and disposition. Disposition - Disposition Forms: [employer] (Slovenian)
--- NOTE | 2019-03-02 14:46 | RAD ---
Date of service: 03/01/2019 PROCEDURE: Right Knee Radiographs. HISTORY: knee pain COMPARISON: 08/01/2015 TECHNIQUE: 2 views obtained. FINDINGS: BONES: No fracture. Probable bipartite patella. This is unchanged compared to prior examination. JOINTS: Medial osteoarthritis. JOINT EFFUSION: None. OTHER FINDINGS: None. IMPRESSION: Medial osteoarthritis. No acute fracture.
== END 2019-03-01 19:34 | disposition left against medical advice (07) ==
LOC: H.ER 16:32
DX: R10.9 Unspecified abdominal pain (principal); F17.210 Nicotine dependence, cigarettes, uncomplicated; G89.29 Other chronic pain; Z88.6 Allergy status to analgesic agent